=== PATIENT | female | born 1955 | race Caucasian/White ===

== ENCOUNTER 2016-07-24 06:22 | Day surgery (SDC) | payer MEDICARE, MEDICAID ==
[~2016-07-24 06:22] MED LIST: ACET-3161 PO; ASPI325T2 PO; FERR-63 PO; INSU100V28 IJ; INSU3INS6 SQ; ISOS20TA8 PO; LOSA100T11 PO; METO25TA6 PO; MULT-1146 PO; OMEP20TA80 PO; POTA20TA75 PO
[2016-07-24] MEDS ORDERED: NITROGLYCERIN 50MCG/ML 10ML VIAL (CATH LAB) IV ONE (07:18)
[2016-07-24] MEDS ORDERED: NICARDIPINE 100MCG/ML 10ML VIAL (CATH LAB) IV ONE (07:18)
[2016-07-24] MEDS ORDERED: ASPI-1035 PO (07:36)
[2016-07-24] MEDS ORDERED: LIDOCAINE HCL 1% 20ML VIAL (Pyxis) INJ ONE (07:59)
[2016-07-24] MEDS ORDERED: IOHEXOL-300 100 ML BOTTLE ONE ×2 (08:08→09:09)
[2016-07-24] MEDS ORDERED: MIDAZOLAM HCL 2 MG/2 ML VIAL ONE ×2 (08:23→09:13)
[2016-07-24] MEDS ORDERED: FENTANYL CITRATE/PF 50MCG/ML 2ML VIAL ONE (08:24)
[2016-07-24] MEDS ORDERED: HEPARIN SODIUM 1,000 UNIT/1ML VIAL IV ONE ×2 (08:27→09:26)
[2016-07-24] MEDS ORDERED: DEXTROSE 50% WATER 50ML SYRINGE IV PRN (10:00)
[2016-07-24] MEDS ORDERED: SODIUM CHLORIDE 0.45% 1,000 ML IV ONE (10:00)
[2016-07-24] MEDS ORDERED: BLOOD SUGAR DIAGNOSTIC STRIP TEST SCH (13:00)
[2016-07-24] MEDS ORDERED: INSULIN LISPRO 100 UNITS/ML SUBCUT SCH (13:00)
== END 2016-07-24 14:00 | disposition home or self-care (01) ==
LOC: CCL 06:22
PROVIDERS: ATTEND Specialist
DX: I25.10 Atherosclerotic heart disease of native coronary artery without angina pectoris (principal); I10 Essential (primary) hypertension; I21.3 ST elevation (STEMI) myocardial infarction of unspecified site; I73.9 Peripheral vascular disease, unspecified; K21.9 Gastro-esophageal reflux disease without esophagitis; E11.40 Type 2 diabetes mellitus with diabetic neuropathy, unspecified; E11.9 Type 2 diabetes mellitus without complications
CPT/HCPCS: 93458; 93970; 93971; C1769; C1887; C1893; J1644; J2250; J3010; J3490; Q9967

== ENCOUNTER 2017-04-08 13:37 | Inpatient (IN) | payer MEDICARE, MEDICAID ==
[~2017-04-08] VITALS: Ht 157.5 cm; Wt 69.9 kg
[~2017-04-08 13:37] MED LIST changes: +ASPI-1159 PO; -ASPI325T2 PO; +FURO40TA5 PO; +GABA-531 PO; -LOSA100T11 PO; +LOSA100T3 PO; +OMEP20TA2 PO; -OMEP20TA80 PO; +POTA20TA12 PO; -POTA20TA75 PO
[2017-04-08] MEDS ORDERED: SODIUM CHLORIDE 0.9% 1,000 ML IV ONE (15:18)
[2017-04-08 15:50] LABS: BASOPHILS % 0.3 % (0.0-2.0); EOSINOPHILS % 1.2 % (0.0-5.0); HEMATOCRIT. 26.9 % (36.0-48.0); HEMOGLOBIN. 9.2 g/dL (12.0-16.0); LYMPHOCYTES % 24.5 % (20.0-50.0); MEAN CORPUSCULAR HEMOGLOBIN 31.7 pg (28.0-32.0); MEAN CORPUSCULAR VOLUME 92.7 fL (81.0-99.0); MEAN PLATELET VOLUME 9.3 fl (7.4-10.4); MONOCYTES % 6.6 % (2.0-8.0); NEUTROPHILS % 67.4 % (40.0-76.0); PLATELET 201 x1000/uL (130-400); RED CELL DISTRIBUTION WIDTH 12.9 % (11.6-14.6)
[2017-04-08 15:52] LABS: CHLORIDE 101 mEq/L (98-107)
[2017-04-08 15:54] LABS: INR 1.1; PARTIAL THROMBOPLASTIN TIME 25.2 sec (23.4-31.0); PROTHROMBIN TIME 11.4 sec (9.4-11.6)
[2017-04-08 15:55] LABS: CARBON DIOXIDE 28 mEq/L (21-32)
[2017-04-08 17:24] LABS: CLARITY URINE TURBID (CLEAR); COLOR URINE ORANGE (YELLOW); KETONES URINE NEGATIVE (NEGATIVE); LEUKOCYTE ESTERASE URINE 3+ (NEGATIVE); NITRITE URINE POSITIVE (NEGATIVE); OCCULT BLOOD URINE 3+ (NEGATIVE); PROTEIN URINE 2+ (NEGATIVE); SPECIFIC GRAVITY URINE 1.019 (1.005-1.030)
[2017-04-08] MEDS ORDERED: CEFTRIAXONE 1 G PREMIX 50 ML IV ONE (18:30)
[2017-04-08] MEDS: SODIUM CHLORIDE 0.45% 1,000 ML IV SCH (23:00)
[2017-04-08] MEDS ORDERED: ACETAMINOPHEN 325MG TABLET PO PRN (23:00)
[2017-04-08] MEDS ORDERED: DEXTROSE 50% WATER 50ML SYRINGE IV PRN (23:00)
[2017-04-09] VITALS (12 sets, daily range): BP systolic 100–149; BP diastolic 54–80
[2017-04-09] MEDS: BLOOD SUGAR DIAGNOSTIC STRIP TEST SCH ×4 (07:01→21:02)
[2017-04-09 07:14] LABS: BASOPHILS % 0.2 % (0.0-2.0); EOSINOPHILS % 3.5 % (0.0-5.0); HEMATOCRIT. 23.3 % (36.0-48.0); HEMOGLOBIN. 7.9 g/dL (12.0-16.0); MEAN CORPUSCULAR HEMOGLOBIN 31.4 pg (28.0-32.0); MEAN PLATELET VOLUME 9.7 fl (7.4-10.4); MONOCYTES % 10.2 % (2.0-8.0); NEUTROPHILS % 49.1 % (40.0-76.0); PLATELET 105 x1000/uL (130-400); RED BLOOD CELL COUNT 2.53 mill/uL (4.2-5.4); RED CELL DISTRIBUTION WIDTH 12.5 % (11.6-14.6)
[2017-04-09] MEDS: INSULIN LISPRO 100 UNITS/ML SUBCUT SCH ×4 (07:50→21:40)
[2017-04-09 08:16] LABS: CHLORIDE 104 mEq/L (98-107)
[2017-04-09 08:26] LABS: CARBON DIOXIDE 25 mEq/L (21-32)
[2017-04-09] MEDS ORDERED: OMEPRAZOLE 20MG CAPSULE EXTENDED RELEASE PO NR (09:15)
[2017-04-09] MEDS ORDERED: ACETAMINOPHEN WITH CODEINE 300/30MG TABLET PO PRN (09:15)
[2017-04-09] MEDS: LOSARTAN POTASSIUM 50 MG TABLET PO SCH (11:41)
[2017-04-09] MEDS: DOCUSATE SODIUM 250MG CAPSULE PO SCH (11:41)
[2017-04-09] MEDS: SODIUM CHLORIDE 0.45% 1,000 ML IV SCH ×2 (11:43→21:14)
[2017-04-09] MEDS: ISOSORBIDE DINITRATE 20MG TABLET PO SCH ×2 (14:24→16:24)
[2017-04-09] MEDS: FERROUS SULFATE 325MG TABLET PO SCH (16:24)
[2017-04-09 20:01] LABS: BASOPHILS % 0.3 % (0.0-2.0); EOSINOPHILS % 2.4 % (0.0-5.0); HEMATOCRIT. 29.6 % (36.0-48.0); LYMPHOCYTES % 30.4 % (20.0-50.0); MEAN CORPUSCULAR VOLUME 92.1 fL (81.0-99.0); MEAN PLATELET VOLUME 9.1 fl (7.4-10.4); MONOCYTES % 9.4 % (2.0-8.0); NEUTROPHILS % 57.5 % (40.0-76.0); PLATELET 168 x1000/uL (130-400); RED BLOOD CELL COUNT 3.22 mill/uL (4.2-5.4); RED CELL DISTRIBUTION WIDTH 13.2 % (11.6-14.6)
[2017-04-09] MEDS ORDERED: CEFTRIAXONE 1,000 MG in SODIUM CHLORIDE 0.9% 50 ML IV SCH (21:00)
[2017-04-09] MEDS ORDERED: INSULIN GLARGINE UD 100 UNITS/ML SYR SUBCUT SCH (22:00)
[2017-04-10] VITALS: BP 99/47
[2017-04-10 04:00] VITALS: BP 114/58
[2017-04-10] MEDS: SODIUM CHLORIDE 0.45% 1,000 ML IV SCH (05:13)
[2017-04-10] MEDS: BLOOD SUGAR DIAGNOSTIC STRIP TEST SCH (06:58)
[2017-04-10 06:59] LABS: BASOPHILS % 0.7 % (0.0-2.0); EOSINOPHILS % 4.2 % (0.0-5.0); HEMATOCRIT. 28.3 % (36.0-48.0); HEMOGLOBIN. 9.7 g/dL (12.0-16.0); LYMPHOCYTES % 40.6 % (20.0-50.0); MEAN CORPUSCULAR HEMOGLOBIN 31.5 pg (28.0-32.0); MEAN CORPUSCULAR VOLUME 92.4 fL (81.0-99.0); MONOCYTES % 10.4 % (2.0-8.0); NEUTROPHILS % 44.1 % (40.0-76.0); RED BLOOD CELL COUNT 3.07 mill/uL (4.2-5.4)
[2017-04-10] MEDS ORDERED: OMEPRAZOLE 20MG CAPSULE EXTENDED RELEASE PO SCH (07:20)
[2017-04-10] MEDS: INSULIN LISPRO 100 UNITS/ML SUBCUT SCH (07:50)
[2017-04-10 08:00] VITALS: BP 143/73
[2017-04-10 08:28] LABS: CARBON DIOXIDE 23 mEq/L (21-32); CHLORIDE 106 mEq/L (98-107)
[2017-04-10] MEDS ORDERED: METOPROLOL TARTRATE 25MG TABLET PO SCH (09:00)
[2017-04-10] MEDS: LOSARTAN POTASSIUM 50 MG TABLET PO SCH (09:02)
[2017-04-10] MEDS: DOCUSATE SODIUM 250MG CAPSULE PO SCH (09:02)
[2017-04-10] MEDS: FERROUS SULFATE 325MG TABLET PO SCH (09:03)
[2017-04-10] MEDS: ISOSORBIDE DINITRATE 20MG TABLET PO SCH (09:04)
[2017-04-10] MEDS ORDERED: ONDANSETRON HCL 4MG/2ML VIAL IM NR (11:00)
[2017-04-10 12:00] VITALS: BP 95/50
[2017-04-10 12:23] VITALS: BP 143/73
[2017-04-10] MEDS ORDERED: CEFTRIAXONE 1 G PREMIX 50 ML IV SCH (21:00)
== END 2017-04-10 12:42 | disposition home or self-care (01) | DRG 689 ==
LOC: ER 14:26 → 6EST 18:27 → ENRESERV 20:03
PROVIDERS: ADMIT Internal Medicine Geriatric Medicine; ATTEND Internal Medicine Geriatric Medicine
DX: N30.01 Acute cystitis with hematuria (principal); N17.0 Acute kidney failure with tubular necrosis; D69.6 Thrombocytopenia, unspecified; E11.22 Type 2 diabetes mellitus with diabetic chronic kidney disease; E11.42 Type 2 diabetes mellitus with diabetic polyneuropathy; E11.51 Type 2 diabetes mellitus with diabetic peripheral angiopathy without gangrene; R71.0 Precipitous drop in hematocrit; E11.65 Type 2 diabetes mellitus with hyperglycemia; I25.10 Atherosclerotic heart disease of native coronary artery without angina pectoris; R31.0 Gross hematuria; E66.9 Obesity, unspecified; Z96.649 Presence of unspecified artificial hip joint; D50.9 Iron deficiency anemia, unspecified; I13.10 Hypertensive heart and chronic kidney disease without heart failure, with stage 1 through stage 4 chronic kidney disease, or unspecified chronic kidney disease; I25.2 Old myocardial infarction; Z99.3 Dependence on wheelchair; N18.9 Chronic kidney disease, unspecified; Z79.82 Long term (current) use of aspirin; Z79.4 Long term (current) use of insulin; Z79.899 Other long term (current) drug therapy; Z86.73 Personal history of transient ischemic attack (TIA), and cerebral infarction without residual deficits; Z87.440 Personal history of urinary (tract) infections; Z90.710 Acquired absence of both cervix and uterus; Z88.1 Allergy status to other antibiotic agents; Z89.611 Acquired absence of right leg above knee; Z95.5 Presence of coronary angioplasty implant and graft; Z68.28 Body mass index [BMI] 28.0-28.9, adult
CPT/HCPCS: 36415; 71045; 74176; 76770; 80053; 81001; 82962; 83036; 85025; 85610; 85730; 86850; 86900; 86920; 87040; 87086; 93005; 96361; 96365; 97161; 99285; J0696; J1815; J2405; J7030; P9016

== ENCOUNTER 2019-01-30 19:35 | Inpatient (IN) | payer MEDICARE, MEDICAID ==
[~2019-01-30] VITALS: Ht 162.6 cm; Wt 72.6 kg
[~2019-01-30 19:35] MED LIST changes: -ASPI-1159 PO; +ASPI-1393 PO
[2019-01-30] MEDS ORDERED: SODIUM CHLORIDE 0.9% 1,000 ML IV ONE (21:19)
[2019-01-30] MEDS ORDERED: ONDANSETRON HCL 4MG/2ML INJ IV STA (21:19)
[2019-01-30 21:41] LABS: HEMATOCRIT. 38.7 % (36.0-48.0); MEAN CORPUSCULAR HEMOGLOBIN 31.8 pg (28.0-32.0); MEAN CORPUSCULAR VOLUME 94.7 fL (81.0-99.0); MEAN PLATELET VOLUME 10.7 fl (7.4-10.4); PLATELET 160 x1000/uL (130-400); RED BLOOD CELL COUNT 4.09 mill/uL (4.2-5.4); RED CELL DISTRIBUTION WIDTH 13.5 % (11.6-14.6)
[2019-01-30 21:46] LABS: CHLORIDE 110 mEq/L (98-107)
[2019-01-30 22:08] LABS: PLATELET ESTIMATE NORMAL
[2019-01-30] MEDS ORDERED: CEFTRIAXONE 1 G PREMIX 50 ML IV ONE (23:00)
[2019-01-31] VITALS (7 sets, daily range): BP systolic 84–141; BP diastolic 49–70
[2019-01-31 00:04] LABS: CLARITY URINE TURBID (CLEAR); COLOR URINE DARK YELLOW (YELLOW); KETONES URINE NEGATIVE (NEGATIVE); LEUKOCYTE ESTERASE URINE 3+ (NEGATIVE); NITRITE URINE NEGATIVE (NEGATIVE); OCCULT BLOOD URINE 2+ (NEGATIVE); PH URINE 7.5 (4.5-8.0); PROTEIN URINE 3+ (NEGATIVE); SPECIFIC GRAVITY URINE 1.017 (1.005-1.030)
[2019-01-31] MEDS ORDERED: PIPERACILLIN/TAZOBACTAM 3.375GM/50ML PREMIX IV SCH (07:00)
[2019-01-31] MEDS ORDERED: DEXTROSE 50% WATER 50ML SYRINGE IV PRN (07:00)
[2019-01-31] MEDS ORDERED: ACETAMINOPHEN WITH CODEINE 300/30MG TABLET PO PRN (07:00)
[2019-01-31] MEDS: BLOOD SUGAR DIAGNOSTIC STRIP TEST SCH ×4 (07:42→21:17)
[2019-01-31] MEDS: OMEPRAZOLE 20MG CAPSULE EXTENDED RELEASE PO SCH (08:38)
[2019-01-31] MEDS: LOSARTAN POTASSIUM 100 MG TABLET PO SCH (08:39)
[2019-01-31] MEDS: POTASSIUM CHLORIDE 20MEQ TABLET SR PO SCH (08:39)
[2019-01-31] MEDS: ASPIRIN 81MG EC TABLET PO SCH (08:39)
[2019-01-31] MEDS: MULTIVITAMINS,THER W-MINERALS TABLET PO SCH (08:39)
[2019-01-31] MEDS: ISOSORBIDE DINITRATE 20MG TABLET PO SCH ×3 (08:40→17:00)
[2019-01-31] MEDS: METOPROLOL TARTRATE 25MG TABLET PO SCH (08:41)
[2019-01-31] MEDS: FERROUS SULFATE 325MG TABLET PO SCH ×2 (08:42→18:16)
[2019-01-31] MEDS: INSULIN LISPRO 100 UNITS/ML SUBCUT SCH ×4 (08:56→21:00)
[2019-01-31] MEDS: PIPERACILLIN/TAZOBACTAM 3.375 G in DEXT 5% WATER 100 ML IV SCH ×3 (10:26→21:34)
[2019-01-31] MEDS ORDERED: LOPERAMIDE HCL 2MG CAPSULE PO PRN (13:15)
[2019-01-31] MEDS ORDERED: SODIUM CHLORIDE 0.9% 1,000 ML IV ONE ×2 (13:15→14:00)
[2019-01-31] MEDS: LACTOBACILLUS GG CAPSULE PO SCH (18:16)
[2019-01-31] MEDS: GABAPENTIN 300MG CAPSULE PO SCH ×2 (21:00→21:29)
[2019-01-31] MEDS: SODIUM CHLORIDE 0.45% 1,000 ML IV SCH (21:29)
[2019-02-01] VITALS (10 sets, daily range): BP systolic 102–130; BP diastolic 55–69
[2019-02-01] MEDS: SODIUM CHLORIDE 0.45% 1,000 ML IV SCH ×2 (03:10→12:38)
[2019-02-01] MEDS: PIPERACILLIN/TAZOBACTAM 3.375 G in DEXT 5% WATER 100 ML IV SCH ×4 (04:41→22:48)
[2019-02-01 06:43] LABS: HEMATOCRIT. 32.1 % (36.0-48.0); HEMOGLOBIN. 10.6 g/dL (12.0-16.0); MEAN CORPUSCULAR HEMOGLOBIN 31.8 pg (28.0-32.0); MEAN CORPUSCULAR VOLUME 96.2 fL (81.0-99.0); MEAN PLATELET VOLUME 11.7 fl (7.4-10.4); RED BLOOD CELL COUNT 3.34 mill/uL (4.2-5.4); RED CELL DISTRIBUTION WIDTH 13.8 % (11.6-14.6)
[2019-02-01] MEDS: OMEPRAZOLE 20MG CAPSULE EXTENDED RELEASE PO SCH (06:50)
[2019-02-01 07:05] LABS: PHOSPHORUS 3.8 mg/dL (2.5-4.9)
[2019-02-01] MEDS: INSULIN LISPRO 100 UNITS/ML SUBCUT SCH ×4 (07:20→21:00)
[2019-02-01] MEDS: BLOOD SUGAR DIAGNOSTIC STRIP TEST SCH ×4 (07:34→21:53)
[2019-02-01] MEDS: METOPROLOL TARTRATE 25MG TABLET PO SCH (09:00)
[2019-02-01] MEDS: LOSARTAN POTASSIUM 100 MG TABLET PO SCH (09:22)
[2019-02-01] MEDS: FERROUS SULFATE 325MG TABLET PO SCH ×2 (09:23→16:20)
[2019-02-01] MEDS: LACTOBACILLUS GG CAPSULE PO SCH ×2 (09:23→16:19)
[2019-02-01] MEDS: ASPIRIN 81MG EC TABLET PO SCH (09:23)
[2019-02-01] MEDS: MULTIVITAMINS,THER W-MINERALS TABLET PO SCH (09:23)
[2019-02-01] MEDS: POTASSIUM CHLORIDE 20MEQ TABLET SR PO SCH (09:23)
[2019-02-01] MEDS ORDERED: POTASSIUM CHLORIDE 20MEQ/PACKET PO NR (10:30)
[2019-02-01 10:55] LABS: PLATELET 110 x1000/uL (130-400)
[2019-02-01] MEDS: ISOSORBIDE DINITRATE 20MG TABLET PO SCH ×2 (12:34→16:17)
[2019-02-01] MEDS: GABAPENTIN 300MG CAPSULE PO SCH (21:55)
[2019-02-02] VITALS (10 sets, daily range): BP systolic 91–128; BP diastolic 50–85
[2019-02-02] MEDS: SODIUM CHLORIDE 0.45% 1,000 ML IV SCH ×3 (00:32→21:52)
[2019-02-02] MEDS: PIPERACILLIN/TAZOBACTAM 3.375 G in DEXT 5% WATER 100 ML IV SCH ×4 (04:38→21:53)
[2019-02-02] MEDS: BLOOD SUGAR DIAGNOSTIC STRIP TEST SCH ×4 (06:33→21:00)
[2019-02-02] MEDS: FAMOTIDINE 20MG TABLET PO SCH (06:40)
[2019-02-02 06:58] LABS: BASOPHILS % 0.1 % (0.0-2.0); HEMOGLOBIN. 10.5 g/dL (12.0-16.0); LYMPHOCYTES % 7.1 % (20.0-50.0); MEAN CORPUSCULAR HEMOGLOBIN 32.1 pg (28.0-32.0); MEAN CORPUSCULAR VOLUME 95.1 fL (81.0-99.0); MONOCYTES % 5.9 % (2.0-8.0); NEUTROPHILS % 84.9 % (40.0-76.0); PLATELET 94 x1000/uL (130-400); RED BLOOD CELL COUNT 3.26 mill/uL (4.2-5.4); RED CELL DISTRIBUTION WIDTH 13.3 % (11.6-14.6)
[2019-02-02] MEDS: INSULIN LISPRO 100 UNITS/ML SUBCUT SCH ×4 (07:20→21:53)
[2019-02-02 08:11] LABS: CHLORIDE 109 mEq/L (98-107)
[2019-02-02] MEDS: FERROUS SULFATE 325MG TABLET PO SCH ×2 (09:03→18:03)
[2019-02-02] MEDS: LACTOBACILLUS GG CAPSULE PO SCH ×2 (09:05→18:03)
[2019-02-02] MEDS: ASPIRIN 81MG EC TABLET PO SCH (09:05)
[2019-02-02] MEDS: LOSARTAN POTASSIUM 100 MG TABLET PO SCH (09:05)
[2019-02-02] MEDS: MULTIVITAMINS,THER W-MINERALS TABLET PO SCH (09:05)
[2019-02-02] MEDS: POTASSIUM CHLORIDE 20MEQ TABLET SR PO SCH (09:06)
[2019-02-02] MEDS: METOPROLOL TARTRATE 25MG TABLET PO SCH (09:06)
[2019-02-02] MEDS: ISOSORBIDE DINITRATE 20MG TABLET PO SCH ×3 (09:53→18:08)
[2019-02-02] MEDS ORDERED: POTASSIUM CHLORIDE 20MEQ/PACKET PO NR (14:00)
[2019-02-02] MEDS: IPRATROPIUM/ALBUTEROL 0.5-3(2.5)MG/3ML NEB HHN SCH ×2 (15:29→20:29)
[2019-02-02 16:07] LABS: CREATINE KINASE 26 IU/L (26-192)
[2019-02-02] MEDS: GABAPENTIN 300MG CAPSULE PO SCH (21:53)
[2019-02-03] VITALS (11 sets, daily range): BP systolic 2–137; BP diastolic 32–96
[2019-02-03] MEDS: IPRATROPIUM/ALBUTEROL 0.5-3(2.5)MG/3ML NEB HHN SCH ×4 (01:50→20:38)
[2019-02-03] MEDS: PIPERACILLIN/TAZOBACTAM 3.375 G in DEXT 5% WATER 100 ML IV SCH ×4 (04:30→21:24)
[2019-02-03] MEDS: SODIUM CHLORIDE 0.45% 1,000 ML IV SCH ×3 (06:30→23:05)
[2019-02-03] MEDS: BLOOD SUGAR DIAGNOSTIC STRIP TEST SCH ×4 (06:30→21:00)
[2019-02-03] MEDS: FAMOTIDINE 20MG TABLET PO SCH ×3 (06:30→06:50)
[2019-02-03 06:58] LABS: HEMATOCRIT. 33.6 % (36.0-48.0); HEMOGLOBIN. 11.2 g/dL (12.0-16.0); MEAN CORPUSCULAR HEMOGLOBIN 31.8 pg (28.0-32.0); MEAN CORPUSCULAR VOLUME 95.6 fL (81.0-99.0); MEAN PLATELET VOLUME 11.5 fl (7.4-10.4); RED BLOOD CELL COUNT 3.51 mill/uL (4.2-5.4); RED CELL DISTRIBUTION WIDTH 13.4 % (11.6-14.6)
[2019-02-03 08:42] LABS: PLATELET ESTIMATE NORMAL
[2019-02-03 08:43] LABS: PLATELET 105 x1000/uL (130-400)
[2019-02-03] MEDS: LACTOBACILLUS GG CAPSULE PO SCH ×3 (09:00→17:04)
[2019-02-03] MEDS: FERROUS SULFATE 325MG TABLET PO SCH ×3 (10:12→17:20)
[2019-02-03] MEDS: MULTIVITAMINS,THER W-MINERALS TABLET PO SCH (10:12)
[2019-02-03] MEDS: ASPIRIN 81MG EC TABLET PO SCH (10:12)
[2019-02-03] MEDS: POTASSIUM CHLORIDE 20MEQ TABLET SR PO SCH (10:15)
[2019-02-03] MEDS: ISOSORBIDE DINITRATE 20MG TABLET PO SCH ×4 (10:15→17:04)
[2019-02-03] MEDS: LOSARTAN POTASSIUM 100 MG TABLET PO SCH (10:16)
[2019-02-03] MEDS: METOPROLOL TARTRATE 25MG TABLET PO SCH (10:16)
[2019-02-03] MEDS: INSULIN GLARGINE UD 100 UNITS/ML SYR SUBCUT SCH (10:18)
[2019-02-03] MEDS: INSULIN LISPRO 100 UNITS/ML SUBCUT SCH ×4 (10:19→21:00)
[2019-02-03] MEDS: GABAPENTIN 300MG CAPSULE PO SCH (21:13)
[2019-02-04] VITALS (12 sets, daily range): BP systolic 95–149; BP diastolic 63–92
[2019-02-04] MEDS: IPRATROPIUM/ALBUTEROL 0.5-3(2.5)MG/3ML NEB HHN SCH ×4 (02:04→21:07)
[2019-02-04] MEDS: PIPERACILLIN/TAZOBACTAM 3.375 G in DEXT 5% WATER 100 ML IV SCH ×4 (04:13→21:43)
[2019-02-04 06:15] LABS: HEMATOCRIT. 33.8 % (36.0-48.0); HEMOGLOBIN. 11.5 g/dL (12.0-16.0); MEAN CORPUSCULAR HEMOGLOBIN 31.8 pg (28.0-32.0); MEAN CORPUSCULAR VOLUME 93.2 fL (81.0-99.0); MEAN PLATELET VOLUME 10.6 fl (7.4-10.4); PLATELET 150 x1000/uL (130-400); RED BLOOD CELL COUNT 3.63 mill/uL (4.2-5.4); RED CELL DISTRIBUTION WIDTH 12.9 % (11.6-14.6)
[2019-02-04] MEDS: FAMOTIDINE 20MG TABLET PO SCH (06:22)
[2019-02-04] MEDS: BLOOD SUGAR DIAGNOSTIC STRIP TEST SCH ×4 (06:22→21:00)
[2019-02-04] MEDS: SODIUM CHLORIDE 0.45% 1,000 ML IV SCH (06:22)
[2019-02-04 06:24] LABS: CHLORIDE 100 mEq/L (98-107)
[2019-02-04] MEDS: INSULIN LISPRO 100 UNITS/ML SUBCUT SCH ×4 (07:20→21:00)
[2019-02-04] MEDS: METOPROLOL TARTRATE 25MG TABLET PO SCH (09:00)
[2019-02-04] MEDS: ASPIRIN 81MG EC TABLET PO SCH (09:00)
[2019-02-04] MEDS: LOSARTAN POTASSIUM 100 MG TABLET PO SCH (09:00)
[2019-02-04] MEDS ORDERED: POTASSIUM CHLORIDE 20MEQ TABLET SR PO SCH (09:00)
[2019-02-04] MEDS: MULTIVITAMINS,THER W-MINERALS TABLET PO SCH (09:00)
[2019-02-04] MEDS ORDERED: VANCOMYCIN 1 G PREMIX 200 ML IV SCH (09:15)
[2019-02-04] MEDS ORDERED: MAGNESIUM 2 G PREMIX 50 ML IV PRN (09:15)
[2019-02-04] MEDS ORDERED: POTASSIUM CHLORIDE 20MEQ/PACKET PO SCH (09:30)
[2019-02-04] MEDS: ONDANSETRON HCL 4MG/2ML INJ IV PRN ×2 (09:38→16:17)
[2019-02-04] MEDS ORDERED: VANCOMYCIN 1500MG in DEXTROSE 5% WATER 250ML IV NR (11:00)
[2019-02-04] MEDS ORDERED: POTASSIUM CHLORIDE INJ 40 MEQ in DEXT 5% WATER 250 ML IV NR (11:00)
[2019-02-04 11:06] LABS: PLATELET ESTIMATE NORMAL
[2019-02-04] MEDS: DEXT 5%/0.45% NACL KCL 20MEQ/L 1,000 ML IV SCH ×2 (11:06→19:46)
[2019-02-04] MEDS: ISOSORBIDE DINITRATE 20MG TABLET PO SCH ×2 (13:44→17:00)
[2019-02-04] MEDS: INSULIN GLARGINE UD 100 UNITS/ML SYR SUBCUT SCH (13:46)
[2019-02-04] MEDS: LACTOBACILLUS GG CAPSULE PO SCH (16:17)
[2019-02-04] MEDS: FERROUS SULFATE 325MG TABLET PO SCH (16:20)
[2019-02-04] MEDS: GABAPENTIN 300MG CAPSULE PO SCH (21:00)
[2019-02-04] MEDS: VANCOMYCIN 1 G PREMIX 200 ML IV SCH (23:05)
[2019-02-05] VITALS (11 sets, daily range): BP systolic 103–131; BP diastolic 52–90
[2019-02-05] MEDS: IPRATROPIUM/ALBUTEROL 0.5-3(2.5)MG/3ML NEB HHN SCH ×4 (03:07→21:07)
[2019-02-05] MEDS: DEXT 5%/0.45% NACL KCL 20MEQ/L 1,000 ML IV SCH (03:59)
[2019-02-05] MEDS: PIPERACILLIN/TAZOBACTAM 3.375 G in DEXT 5% WATER 100 ML IV SCH ×3 (03:59→16:49)
[2019-02-05] MEDS: ONDANSETRON HCL 4MG/2ML INJ IV PRN ×2 (05:31→21:43)
[2019-02-05] MEDS: BLOOD SUGAR DIAGNOSTIC STRIP TEST SCH ×4 (06:39→20:58)
[2019-02-05] MEDS: FAMOTIDINE 20MG TABLET PO SCH (06:39)
[2019-02-05 06:56] LABS: HEMATOCRIT. 29.4 % (36.0-48.0); HEMOGLOBIN. 9.8 g/dL (12.0-16.0); MEAN CORPUSCULAR HEMOGLOBIN 31.6 pg (28.0-32.0); MEAN CORPUSCULAR VOLUME 94.2 fL (81.0-99.0); MEAN PLATELET VOLUME 10.4 fl (7.4-10.4); PLATELET 150 x1000/uL (130-400); RED BLOOD CELL COUNT 3.11 mill/uL (4.2-5.4); RED CELL DISTRIBUTION WIDTH 13.2 % (11.6-14.6)
[2019-02-05 07:01] LABS: CHLORIDE 100 mEq/L (98-107)
[2019-02-05 07:08] LABS: PHOSPHORUS 1.6 mg/dL (2.5-4.9)
[2019-02-05] MEDS: FERROUS SULFATE 325MG TABLET PO SCH ×2 (07:38→17:20)
[2019-02-05] MEDS: INSULIN LISPRO 100 UNITS/ML SUBCUT SCH ×4 (07:40→20:58)
[2019-02-05] MEDS: ISOSORBIDE DINITRATE 20MG TABLET PO SCH ×4 (09:00→17:10)
[2019-02-05] MEDS: LACTOBACILLUS GG CAPSULE PO SCH ×3 (09:53→17:10)
[2019-02-05] MEDS: ASPIRIN 81MG EC TABLET PO SCH (09:53)
[2019-02-05] MEDS: LOSARTAN POTASSIUM 100 MG TABLET PO SCH (09:55)
[2019-02-05] MEDS: METOPROLOL TARTRATE 25MG TABLET PO SCH (09:55)
[2019-02-05] MEDS: MULTIVITAMINS,THER W-MINERALS TABLET PO SCH (10:02)
[2019-02-05] MEDS: INSULIN GLARGINE UD 100 UNITS/ML SYR SUBCUT SCH (10:04)
[2019-02-05 10:29] LABS: PLATELET ESTIMATE NORMAL
[2019-02-05] MEDS: DEXT 5%/0.9% NACL KCL 20MEQ/L 1,000 ML IV SCH ×2 (10:32→19:32)
[2019-02-05] MEDS: VANCOMYCIN 1 G PREMIX 200 ML IV SCH (10:33)
[2019-02-05] MEDS ORDERED: MEROPENEM 1,000 MG in SODIUM CHLORIDE 0.9% 100 ML IV SCH (11:15)
[2019-02-05] MEDS: MEROPENEM 1000MG in NORMAL SALINE 100ML IV SCH (18:41)
[2019-02-05] MEDS: GABAPENTIN 300MG CAPSULE PO SCH (21:07)
[2019-02-05] MEDS ORDERED: VANCOMYCIN 750 MG PREMIX 150 ML IV SCH (22:00)
[2019-02-06] VITALS (12 sets, daily range): BP systolic 92–152; BP diastolic 48–98
[2019-02-06] MEDS: IPRATROPIUM/ALBUTEROL 0.5-3(2.5)MG/3ML NEB HHN SCH ×3 (01:44→21:29)
[2019-02-06] MEDS: MEROPENEM 1000MG in NORMAL SALINE 100ML IV SCH ×2 (05:47→18:27)
[2019-02-06] MEDS: BLOOD SUGAR DIAGNOSTIC STRIP TEST SCH ×4 (06:16→20:51)
[2019-02-06] MEDS: INSULIN LISPRO 100 UNITS/ML SUBCUT SCH ×4 (06:23→21:38)
[2019-02-06] MEDS: FAMOTIDINE 20MG TABLET PO SCH (06:25)
[2019-02-06] MEDS: FERROUS SULFATE 325MG TABLET PO SCH ×2 (06:25→13:22)
[2019-02-06 07:41] LABS: HEMATOCRIT. 32.2 % (36.0-48.0); HEMOGLOBIN. 10.7 g/dL (12.0-16.0); MEAN CORPUSCULAR HEMOGLOBIN 31.1 pg (28.0-32.0); MEAN CORPUSCULAR VOLUME 93.9 fL (81.0-99.0); MEAN PLATELET VOLUME 9.8 fl (7.4-10.4); PLATELET 143 x1000/uL (130-400); RED BLOOD CELL COUNT 3.43 mill/uL (4.2-5.4); RED CELL DISTRIBUTION WIDTH 13.2 % (11.6-14.6)
[2019-02-06] MEDS: DEXT 5%/0.9% NACL KCL 20MEQ/L 1,000 ML IV SCH ×2 (07:51→20:52)
[2019-02-06 08:03] LABS: CHLORIDE 102 mEq/L (98-107)
[2019-02-06 08:14] LABS: PHOSPHORUS 1.9 mg/dL (2.5-4.9)
[2019-02-06 10:19] LABS: PARTIAL THROMBOPLASTIN TIME 35.5 sec (23.4-31.0); PROTHROMBIN TIME 10.7 sec (9.6-11.0)
[2019-02-06] MEDS ORDERED: LIDOCAINE HCL 1% 20ML VIAL (Pyxis) INJ ONE ×2 (10:53→14:17)
[2019-02-06] MEDS: ISOSORBIDE DINITRATE 20MG TABLET PO SCH ×3 (13:00→18:42)
[2019-02-06 13:20] LABS: PLATELET ESTIMATE NORMAL
[2019-02-06] MEDS: LACTOBACILLUS GG CAPSULE PO SCH ×2 (13:20→18:43)
[2019-02-06] MEDS: ONDANSETRON HCL 4MG/2ML INJ IV PRN (13:20)
[2019-02-06] MEDS: LOSARTAN POTASSIUM 100 MG TABLET PO SCH (13:21)
[2019-02-06] MEDS: MULTIVITAMINS,THER W-MINERALS TABLET PO SCH (13:21)
[2019-02-06] MEDS: METOPROLOL TARTRATE 25MG TABLET PO SCH (13:21)
[2019-02-06] MEDS: INSULIN GLARGINE UD 100 UNITS/ML SYR SUBCUT SCH (13:23)
[2019-02-06] MEDS: ASPIRIN 81MG EC TABLET PO SCH (13:24)
[2019-02-06] MEDS ORDERED: SODIUM BICARBONATE 4% (2.4MEQ) 5ML VIAL IV ONE (14:19)
[2019-02-06] MEDS ORDERED: POTASSIUM PHOS,M-BASIC-D-BASIC 10 MMOL in DEXT 5% WATER 246.6667 ML IV NR (15:00)
[2019-02-06] MEDS: GABAPENTIN 300MG CAPSULE PO SCH (20:52)
[2019-02-06] MEDS: VANCOMYCIN 500 MG PREMIX 100 ML IV SCH (23:27)
[2019-02-07] VITALS (12 sets, daily range): BP systolic 92–127; BP diastolic 50–77
[2019-02-07] MEDS: IPRATROPIUM/ALBUTEROL 0.5-3(2.5)MG/3ML NEB HHN SCH ×4 (02:05→21:19)
[2019-02-07] MEDS: BLOOD SUGAR DIAGNOSTIC STRIP TEST SCH ×3 (06:23→16:31)
[2019-02-07] MEDS: FAMOTIDINE 20MG TABLET PO SCH ×2 (06:37→06:42)
[2019-02-07] MEDS: MEROPENEM 1000MG in NORMAL SALINE 100ML IV SCH ×2 (06:37→16:40)
[2019-02-07 07:01] LABS: HEMATOCRIT. 26.1 % (36.0-48.0); HEMOGLOBIN. 8.6 g/dL (12.0-16.0); MEAN CORPUSCULAR HEMOGLOBIN 31.5 pg (28.0-32.0); MEAN CORPUSCULAR VOLUME 95.5 fL (81.0-99.0); MEAN PLATELET VOLUME 9.5 fl (7.4-10.4); PLATELET 155 x1000/uL (130-400); RED BLOOD CELL COUNT 2.73 mill/uL (4.2-5.4); RED CELL DISTRIBUTION WIDTH 13.3 % (11.6-14.6)
[2019-02-07] MEDS: DEXT 5%/0.9% NACL KCL 20MEQ/L 1,000 ML IV SCH ×2 (07:17→21:46)
[2019-02-07] MEDS: INSULIN LISPRO 100 UNITS/ML SUBCUT SCH ×3 (07:20→16:39)
[2019-02-07] MEDS: FERROUS SULFATE 325MG TABLET PO SCH ×2 (07:20→16:31)
[2019-02-07] MEDS: LOSARTAN POTASSIUM 100 MG TABLET PO SCH (08:32)
[2019-02-07] MEDS: LACTOBACILLUS GG CAPSULE PO SCH ×2 (08:33→16:40)
[2019-02-07] MEDS: ASPIRIN 81MG EC TABLET PO SCH (08:33)
[2019-02-07] MEDS: METOPROLOL TARTRATE 25MG TABLET PO SCH (08:33)
[2019-02-07] MEDS: MULTIVITAMINS,THER W-MINERALS TABLET PO SCH (08:33)
[2019-02-07 09:01] LABS: CHLORIDE 109 mEq/L (98-107)
[2019-02-07] MEDS: ISOSORBIDE DINITRATE 20MG TABLET PO SCH ×3 (10:20→16:31)
[2019-02-07] MEDS: INSULIN GLARGINE UD 100 UNITS/ML SYR SUBCUT SCH (10:23)
[2019-02-07 10:46] LABS: PLATELET ESTIMATE NORMAL
[2019-02-07 11:44] LABS: CHLORIDE 107 mEq/L (98-107)
[2019-02-07] MEDS: VANCOMYCIN 500 MG PREMIX 100 ML IV SCH (12:13)
[2019-02-07] MEDS: GABAPENTIN 300MG CAPSULE PO SCH (21:46)
[2019-02-08] VITALS (21 sets, daily range): BP systolic 83–167; BP diastolic 51–83
[2019-02-08] MEDS: VANCOMYCIN 500 MG PREMIX 100 ML IV SCH ×2 (00:49→12:30)
[2019-02-08] MEDS: IPRATROPIUM/ALBUTEROL 0.5-3(2.5)MG/3ML NEB HHN SCH ×3 (01:14→20:48)
[2019-02-08] MEDS: MEROPENEM 1000MG in NORMAL SALINE 100ML IV SCH ×2 (05:38→19:18)
[2019-02-08] MEDS: FAMOTIDINE 20MG TABLET PO SCH (05:38)
[2019-02-08] MEDS: INSULIN LISPRO 100 UNITS/ML SUBCUT SCH ×4 (07:00→21:00)
[2019-02-08] MEDS: BLOOD SUGAR DIAGNOSTIC STRIP TEST SCH ×4 (07:00→21:35)
[2019-02-08 07:21] LABS: BASOPHILS % 0.1 % (0.0-2.0); EOSINOPHILS % 2.3 % (0.0-5.0); HEMOGLOBIN. 10.3 g/dL (12.0-16.0); LYMPHOCYTES % 8.5 % (20.0-50.0); MEAN CORPUSCULAR HEMOGLOBIN 31.6 pg (28.0-32.0); MEAN CORPUSCULAR VOLUME 95.2 fL (81.0-99.0); MEAN PLATELET VOLUME 8.9 fl (7.4-10.4); MONOCYTES % 6.9 % (2.0-8.0); NEUTROPHILS % 82.2 % (40.0-76.0); PLATELET 168 x1000/uL (130-400); RED BLOOD CELL COUNT 3.25 mill/uL (4.2-5.4); RED CELL DISTRIBUTION WIDTH 13.2 % (11.6-14.6)
[2019-02-08 07:43] LABS: CHLORIDE 110 mEq/L (98-107)
[2019-02-08] MEDS: LACTOBACILLUS GG CAPSULE PO SCH ×2 (09:02→19:17)
[2019-02-08] MEDS: FERROUS SULFATE 325MG TABLET PO SCH ×2 (09:03→19:16)
[2019-02-08] MEDS: ASPIRIN 81MG EC TABLET PO SCH (09:03)
[2019-02-08] MEDS: LOSARTAN POTASSIUM 50 MG TABLET PO SCH (09:04)
[2019-02-08] MEDS: ISOSORBIDE DINITRATE 20MG TABLET PO SCH ×3 (09:04→17:00)
[2019-02-08] MEDS: METOPROLOL TARTRATE 25MG TABLET PO SCH (09:04)
[2019-02-08] MEDS: DEXT 5%/0.9% NACL 1,000 ML IV SCH (09:09)
[2019-02-08] MEDS: MULTIVITAMINS,THER W-MINERALS TABLET PO SCH (09:11)
[2019-02-08] MEDS: INSULIN GLARGINE UD 100 UNITS/ML SYR SUBCUT SCH (09:12)
[2019-02-08] MEDS: GABAPENTIN 300MG CAPSULE PO SCH (21:30)
[2019-02-08] MEDS: ONDANSETRON HCL 4MG/2ML INJ IV PRN (22:57)
[2019-02-09] VITALS (14 sets, daily range): BP systolic 103–158; BP diastolic 29–99
[2019-02-09] MEDS: VANCOMYCIN 500 MG PREMIX 100 ML IV SCH (00:42)
[2019-02-09] MEDS: IPRATROPIUM/ALBUTEROL 0.5-3(2.5)MG/3ML NEB HHN SCH ×4 (04:45→20:19)
[2019-02-09] MEDS: BLOOD SUGAR DIAGNOSTIC STRIP TEST SCH ×4 (06:02→20:45)
[2019-02-09] MEDS: FAMOTIDINE 20MG TABLET PO SCH (06:02)
[2019-02-09] MEDS: MEROPENEM 1000MG in NORMAL SALINE 100ML IV SCH ×2 (06:02→18:00)
[2019-02-09] MEDS: DEXT 5%/0.9% NACL 1,000 ML IV SCH ×2 (06:12→18:05)
[2019-02-09] MEDS: INSULIN LISPRO 100 UNITS/ML SUBCUT SCH ×4 (07:20→20:45)
[2019-02-09 08:06] LABS: HEMATOCRIT. 32.3 % (36.0-48.0); HEMOGLOBIN. 10.6 g/dL (12.0-16.0); MEAN CORPUSCULAR HEMOGLOBIN 31.2 pg (28.0-32.0); MEAN CORPUSCULAR VOLUME 94.8 fL (81.0-99.0); MEAN PLATELET VOLUME 8.8 fl (7.4-10.4); RED CELL DISTRIBUTION WIDTH 13.1 % (11.6-14.6)
[2019-02-09] MEDS: MULTIVITAMINS,THER W-MINERALS TABLET PO SCH (08:39)
[2019-02-09] MEDS: ASPIRIN 81MG EC TABLET PO SCH (08:39)
[2019-02-09] MEDS: FERROUS SULFATE 325MG TABLET PO SCH ×2 (08:39→16:49)
[2019-02-09] MEDS: LOSARTAN POTASSIUM 50 MG TABLET PO SCH (08:39)
[2019-02-09] MEDS: ISOSORBIDE DINITRATE 20MG TABLET PO SCH ×3 (08:39→16:56)
[2019-02-09] MEDS: LACTOBACILLUS GG CAPSULE PO SCH ×2 (08:39→16:49)
[2019-02-09] MEDS: METOPROLOL TARTRATE 25MG TABLET PO SCH (08:40)
[2019-02-09] MEDS: INSULIN GLARGINE UD 100 UNITS/ML SYR SUBCUT SCH (10:00)
[2019-02-09] MEDS ORDERED: DIATR MEGLU/DIATRIZOATE SOLN 30ML PO NR (13:15)
[2019-02-09 13:56] LABS: PLATELET ESTIMATE NORMAL
[2019-02-09 13:57] LABS: PLATELET 241 x1000/uL (130-400)
[2019-02-09] MEDS: METRONIDAZOLE 500 MG PREMIX 100 ML IV SCH ×2 (16:48→20:45)
[2019-02-09] MEDS: VANCOMYCIN IV SCH (18:00)
[2019-02-09] MEDS: DEXT 5% IV SCH (18:00)
[2019-02-09] MEDS: WATER IV SCH (18:00)
[2019-02-09] MEDS: GABAPENTIN 300MG CAPSULE PO SCH (20:45)
[2019-02-10] VITALS (11 sets, daily range): BP systolic 111–132; BP diastolic 53–99
[2019-02-10] MEDS: IPRATROPIUM/ALBUTEROL 0.5-3(2.5)MG/3ML NEB HHN SCH ×4 (02:01→19:47)
[2019-02-10] MEDS: METRONIDAZOLE 500 MG PREMIX 100 ML IV SCH ×3 (05:00→21:21)
[2019-02-10] MEDS: BLOOD SUGAR DIAGNOSTIC STRIP TEST SCH ×4 (06:01→21:18)
[2019-02-10] MEDS: FAMOTIDINE 20MG TABLET PO SCH (06:01)
[2019-02-10] MEDS: MEROPENEM 1000MG in NORMAL SALINE 100ML IV SCH (06:01)
[2019-02-10] MEDS: INSULIN LISPRO 100 UNITS/ML SUBCUT SCH ×4 (06:14→21:41)
[2019-02-10 06:37] LABS: CHLORIDE 111 mEq/L (98-107)
[2019-02-10 06:46] LABS: BASOPHILS % 0.3 % (0.0-2.0); EOSINOPHILS % 0.9 % (0.0-5.0); HEMATOCRIT. 29.7 % (36.0-48.0); HEMOGLOBIN. 9.8 g/dL (12.0-16.0); MEAN CORPUSCULAR HEMOGLOBIN 31.2 pg (28.0-32.0); MEAN CORPUSCULAR VOLUME 94.7 fL (81.0-99.0); MEAN PLATELET VOLUME 7.9 fl (7.4-10.4); MONOCYTES % 6.6 % (2.0-8.0); NEUTROPHILS % 84.2 % (40.0-76.0); PLATELET 225 x1000/uL (130-400); RED BLOOD CELL COUNT 3.14 mill/uL (4.2-5.4); RED CELL DISTRIBUTION WIDTH 13.5 % (11.6-14.6)
[2019-02-10] MEDS: FERROUS SULFATE 325MG TABLET PO SCH ×2 (07:20→17:37)
[2019-02-10 09:07] LABS: BG BASE EXCESS -1.2 mmol/L (-2.0-2.0); BG CARBOXYHEMOGLOBIN 0.3 % (0.5-1.5); BG DEOXYHEMOGLOBIN 3.7 % (0.0-5.0); BG FRACTION INSPIRED OXYGEN 28; BG HCO3 ACT 23.3 mmol/L (22.0-26.0); BG METHEMOGLOBIN 0.1 % (0.0-1.5); BG OXYGEN SATURATION 96.3 % (92.0-98.5); BG OXYHEMOGLOBIN 95.9 % (94.0-97.0); BG PCO2 37.8 mmHg (35.0-45.0); BG PH 7.407 (7.350-7.450); BG PO2 86.7 mmHg (75.0-100.0); BG SAMPLE SITE RIGHT BRACHIAL; BG TOTAL HEMOGLOBIN 10.2 g/dL (12.0-18.0); BG VENT MODE NASAL CANNULA
[2019-02-10] MEDS ORDERED: ACETAMINOPHEN 650MG/20.3ML UDC PO PRN (09:15)
[2019-02-10] MEDS: LACTOBACILLUS GG CAPSULE PO SCH ×2 (09:44→17:37)
[2019-02-10] MEDS: METOPROLOL TARTRATE 25MG TABLET PO SCH (09:44)
[2019-02-10] MEDS: MULTIVITAMINS,THER W-MINERALS TABLET PO SCH (09:44)
[2019-02-10] MEDS: LOSARTAN POTASSIUM 50 MG TABLET PO SCH (09:44)
[2019-02-10] MEDS: ISOSORBIDE DINITRATE 20MG TABLET PO SCH ×3 (09:44→17:37)
[2019-02-10] MEDS: ASPIRIN 81MG EC TABLET PO SCH (09:45)
[2019-02-10] MEDS: METOCLOPRAMIDE HCL 10MG/2ML VIAL IV SCH (10:00)
[2019-02-10] MEDS: INSULIN GLARGINE UD 100 UNITS/ML SYR SUBCUT SCH (10:00)
[2019-02-10] MEDS: DEXT 5%/0.9% NACL 1,000 ML IV SCH ×2 (10:45→21:25)
[2019-02-10] MEDS: VANCOMYCIN IV SCH (12:00)
[2019-02-10] MEDS: DEXT 5% IV SCH (12:00)
[2019-02-10] MEDS: WATER IV SCH (12:00)
[2019-02-10] MEDS: GABAPENTIN 300MG CAPSULE PO SCH (21:22)
[2019-02-11] VITALS (12 sets, daily range): BP systolic 111–156; BP diastolic 59–95
[2019-02-11] MEDS: IPRATROPIUM/ALBUTEROL 0.5-3(2.5)MG/3ML NEB HHN SCH ×4 (02:02→20:40)
[2019-02-11] MEDS: METOCLOPRAMIDE HCL 10MG/2ML VIAL IV SCH ×4 (02:20→17:43)
[2019-02-11] MEDS: MEROPENEM 1000MG in NORMAL SALINE 100ML IV SCH (05:09)
[2019-02-11] MEDS: METRONIDAZOLE 500 MG PREMIX 100 ML IV SCH ×3 (05:51→22:03)
[2019-02-11] MEDS: BLOOD SUGAR DIAGNOSTIC STRIP TEST SCH ×4 (05:51→20:09)
[2019-02-11] MEDS: FAMOTIDINE 20MG TABLET PO SCH (05:53)
[2019-02-11] MEDS: DEXT 5% IV SCH (06:34)
[2019-02-11] MEDS: VANCOMYCIN IV SCH (06:34)
[2019-02-11] MEDS: WATER IV SCH (06:34)
[2019-02-11 07:13] LABS: BASOPHILS % 0.3 % (0.0-2.0); EOSINOPHILS % 2.6 % (0.0-5.0); HEMATOCRIT. 29.4 % (36.0-48.0); HEMOGLOBIN. 9.9 g/dL (12.0-16.0); MEAN CORPUSCULAR VOLUME 94.7 fL (81.0-99.0); MEAN PLATELET VOLUME 8.1 fl (7.4-10.4); MONOCYTES % 6.4 % (2.0-8.0); NEUTROPHILS % 82.7 % (40.0-76.0); PLATELET 251 x1000/uL (130-400); RED CELL DISTRIBUTION WIDTH 13.6 % (11.6-14.6)
[2019-02-11 07:34] LABS: CHLORIDE 111 mEq/L (98-107)
[2019-02-11] MEDS: INSULIN LISPRO 100 UNITS/ML SUBCUT SCH ×4 (08:51→20:09)
[2019-02-11] MEDS: FERROUS SULFATE 325MG TABLET PO SCH ×2 (08:55→17:44)
[2019-02-11] MEDS: MULTIVITAMINS,THER W-MINERALS TABLET PO SCH (08:55)
[2019-02-11] MEDS: LOSARTAN POTASSIUM 50 MG TABLET PO SCH (08:55)
[2019-02-11] MEDS: ASPIRIN 81MG EC TABLET PO SCH (08:55)
[2019-02-11] MEDS: LACTOBACILLUS GG CAPSULE PO SCH ×2 (08:55→17:44)
[2019-02-11] MEDS: METOPROLOL TARTRATE 25MG TABLET PO SCH (08:56)
[2019-02-11] MEDS: INSULIN GLARGINE UD 100 UNITS/ML SYR SUBCUT SCH (09:22)
[2019-02-11] MEDS: ISOSORBIDE DINITRATE 20MG TABLET PO SCH ×3 (10:06→18:09)
[2019-02-11] MEDS: DEXT 5%/0.9% NACL 1,000 ML IV SCH ×2 (16:04→20:05)
[2019-02-11] MEDS: CEFTRIAXONE 1 G PREMIX 50 ML IV SCH (17:37)
[2019-02-11] MEDS: GABAPENTIN 300MG CAPSULE PO SCH (20:24)
[2019-02-12] VITALS (12 sets, daily range): BP systolic 108–143; BP diastolic 41–81
[2019-02-12] MEDS: IPRATROPIUM/ALBUTEROL 0.5-3(2.5)MG/3ML NEB HHN SCH ×5 (02:11→20:22)
[2019-02-12] MEDS: METOCLOPRAMIDE HCL 10MG/2ML VIAL IV SCH ×3 (02:36→17:20)
[2019-02-12] MEDS: METRONIDAZOLE 500 MG PREMIX 100 ML IV SCH ×3 (05:56→21:07)
[2019-02-12] MEDS: INSULIN LISPRO 100 UNITS/ML SUBCUT SCH ×4 (06:27→21:08)
[2019-02-12] MEDS: BLOOD SUGAR DIAGNOSTIC STRIP TEST SCH ×4 (06:27→20:36)
[2019-02-12] MEDS: FERROUS SULFATE 325MG TABLET PO SCH ×2 (06:46→17:22)
[2019-02-12] MEDS: FAMOTIDINE 20MG TABLET PO SCH (06:46)
[2019-02-12 07:32] LABS: BASOPHILS % 0.5 % (0.0-2.0); EOSINOPHILS % 2.5 % (0.0-5.0); HEMATOCRIT. 27.9 % (36.0-48.0); HEMOGLOBIN. 9.4 g/dL (12.0-16.0); LYMPHOCYTES % 11.9 % (20.0-50.0); MEAN CORPUSCULAR HEMOGLOBIN 31.9 pg (28.0-32.0); MEAN CORPUSCULAR VOLUME 94.4 fL (81.0-99.0); MEAN PLATELET VOLUME 8.5 fl (7.4-10.4); MONOCYTES % 7.4 % (2.0-8.0); NEUTROPHILS % 77.7 % (40.0-76.0); PLATELET 198 x1000/uL (130-400); RED BLOOD CELL COUNT 2.96 mill/uL (4.2-5.4); RED CELL DISTRIBUTION WIDTH 13.4 % (11.6-14.6)
[2019-02-12 07:48] LABS: CHLORIDE 111 mEq/L (98-107)
[2019-02-12] MEDS: LOSARTAN POTASSIUM 50 MG TABLET PO SCH (09:28)
[2019-02-12] MEDS: MULTIVITAMINS,THER W-MINERALS TABLET PO SCH (09:28)
[2019-02-12] MEDS: ISOSORBIDE DINITRATE 20MG TABLET PO SCH ×3 (09:28→17:21)
[2019-02-12] MEDS: ASPIRIN 81MG EC TABLET PO SCH (09:28)
[2019-02-12] MEDS: METOPROLOL TARTRATE 25MG TABLET PO SCH (09:29)
[2019-02-12] MEDS: LACTOBACILLUS GG CAPSULE PO SCH ×2 (09:29→17:20)
[2019-02-12] MEDS: INSULIN GLARGINE UD 100 UNITS/ML SYR SUBCUT SCH (10:00)
[2019-02-12] MEDS: DEXT 5%/0.9% NACL 1,000 ML IV SCH (12:57)
[2019-02-12] MEDS: CEFTRIAXONE 1 G PREMIX 50 ML IV SCH (17:14)
[2019-02-12] MEDS: GABAPENTIN 300MG CAPSULE PO SCH (20:36)
[2019-02-13] VITALS (12 sets, daily range): BP systolic 11–150; BP diastolic 65–90
[2019-02-13] MEDS: IPRATROPIUM/ALBUTEROL 0.5-3(2.5)MG/3ML NEB HHN SCH ×5 (01:42→21:30)
[2019-02-13] MEDS: METOCLOPRAMIDE HCL 10MG/2ML VIAL IV SCH ×3 (02:41→17:34)
[2019-02-13] MEDS: METRONIDAZOLE 500 MG PREMIX 100 ML IV SCH ×3 (05:53→20:43)
[2019-02-13] MEDS: DEXT 5%/0.9% NACL 1,000 ML IV SCH (05:54)
[2019-02-13] MEDS: BLOOD SUGAR DIAGNOSTIC STRIP TEST SCH ×4 (06:28→20:38)
[2019-02-13] MEDS: FAMOTIDINE 20MG TABLET PO SCH (06:28)
[2019-02-13] MEDS: INSULIN LISPRO 100 UNITS/ML SUBCUT SCH ×4 (07:20→20:38)
[2019-02-13] MEDS: FERROUS SULFATE 325MG TABLET PO SCH ×2 (09:15→17:33)
[2019-02-13] MEDS: MULTIVITAMINS,THER W-MINERALS TABLET PO SCH (09:15)
[2019-02-13] MEDS: LOSARTAN POTASSIUM 50 MG TABLET PO SCH (09:15)
[2019-02-13] MEDS: ASPIRIN 81MG EC TABLET PO SCH (09:15)
[2019-02-13] MEDS: ISOSORBIDE DINITRATE 20MG TABLET PO SCH ×3 (09:15→17:33)
[2019-02-13] MEDS: LACTOBACILLUS GG CAPSULE PO SCH ×2 (09:15→17:33)
[2019-02-13] MEDS: METOPROLOL TARTRATE 25MG TABLET PO SCH (09:16)
[2019-02-13] MEDS: INSULIN GLARGINE UD 100 UNITS/ML SYR SUBCUT SCH (10:32)
[2019-02-13] MEDS ORDERED: FUROSEMIDE 40MG/4ML VIAL IVP NR (14:30)
[2019-02-13] MEDS: CEFTRIAXONE 1 G PREMIX 50 ML IV SCH (15:07)
[2019-02-13] MEDS: GABAPENTIN 300MG CAPSULE PO SCH (20:43)
[2019-02-14] VITALS (14 sets, daily range): BP systolic 111–149; BP diastolic 57–95
[2019-02-14] MEDS: IPRATROPIUM/ALBUTEROL 0.5-3(2.5)MG/3ML NEB HHN SCH ×4 (01:38→21:20)
[2019-02-14] MEDS: METOCLOPRAMIDE HCL 10MG/2ML VIAL IV SCH ×3 (02:43→17:32)
[2019-02-14] MEDS: METRONIDAZOLE 500 MG PREMIX 100 ML IV SCH ×3 (05:20→21:04)
[2019-02-14] MEDS: BLOOD SUGAR DIAGNOSTIC STRIP TEST SCH ×4 (06:01→20:18)
[2019-02-14] MEDS: INSULIN LISPRO 100 UNITS/ML SUBCUT SCH ×4 (06:01→20:22)
[2019-02-14] MEDS: FAMOTIDINE 20MG TABLET PO SCH (06:05)
[2019-02-14 07:22] LABS: BASOPHILS % 0.5 % (0.0-2.0); HEMATOCRIT. 28.2 % (36.0-48.0); HEMOGLOBIN. 9.5 g/dL (12.0-16.0); LYMPHOCYTES % 12.3 % (20.0-50.0); MEAN CORPUSCULAR HEMOGLOBIN 31.3 pg (28.0-32.0); MEAN CORPUSCULAR VOLUME 93.1 fL (81.0-99.0); MEAN PLATELET VOLUME 8.8 fl (7.4-10.4); MONOCYTES % 6.8 % (2.0-8.0); NEUTROPHILS % 77.4 % (40.0-76.0); PLATELET 171 x1000/uL (130-400); RED BLOOD CELL COUNT 3.03 mill/uL (4.2-5.4); RED CELL DISTRIBUTION WIDTH 13.5 % (11.6-14.6)
[2019-02-14 08:22] LABS: CHLORIDE 113 mEq/L (98-107)
[2019-02-14 08:33] LABS: PHOSPHORUS 1.4 mg/dL (2.5-4.9)
[2019-02-14] MEDS ORDERED: MAGNESIUM 2 G PREMIX 50 ML IV NR (10:00)
[2019-02-14] MEDS ORDERED: POTASSIUM PHOS,M-BASIC-D-BASIC 30 MMOL in DEXT 5% WATER 500 ML IV NR (10:00)
[2019-02-14] MEDS: INSULIN GLARGINE UD 100 UNITS/ML SYR SUBCUT SCH (10:10)
[2019-02-14] MEDS: METOPROLOL TARTRATE 25MG TABLET PO SCH (10:11)
[2019-02-14] MEDS: LACTOBACILLUS GG CAPSULE PO SCH ×2 (10:12→17:33)
[2019-02-14] MEDS: LOSARTAN POTASSIUM 50 MG TABLET PO SCH (10:12)
[2019-02-14] MEDS: ISOSORBIDE DINITRATE 20MG TABLET PO SCH ×3 (10:12→17:32)
[2019-02-14] MEDS: MULTIVITAMINS,THER W-MINERALS TABLET PO SCH (10:12)
[2019-02-14] MEDS: ASPIRIN 81MG EC TABLET PO SCH (10:20)
[2019-02-14] MEDS: FERROUS SULFATE 325MG TABLET PO SCH ×2 (10:21→17:32)
[2019-02-14] MEDS: FUROSEMIDE 20MG/2ML VIAL IVP SCH (10:21)
[2019-02-14] MEDS: CEFTRIAXONE 1 G PREMIX 50 ML IV SCH (15:22)
[2019-02-14] MEDS: GABAPENTIN 300MG CAPSULE PO SCH (20:21)
[2019-02-15] VITALS (12 sets, daily range): BP systolic 84–140; BP diastolic 57–85
[2019-02-15] MEDS: METOCLOPRAMIDE HCL 10MG/2ML VIAL IV SCH ×3 (01:00→17:43)
[2019-02-15] MEDS: IPRATROPIUM/ALBUTEROL 0.5-3(2.5)MG/3ML NEB HHN SCH ×4 (02:10→21:53)
[2019-02-15] MEDS: METRONIDAZOLE 500 MG PREMIX 100 ML IV SCH ×3 (05:13→21:02)
[2019-02-15] MEDS: FAMOTIDINE 20MG TABLET PO SCH (05:58)
[2019-02-15] MEDS: BLOOD SUGAR DIAGNOSTIC STRIP TEST SCH ×4 (05:58→20:09)
[2019-02-15] MEDS: INSULIN LISPRO 100 UNITS/ML SUBCUT SCH ×4 (06:10→20:15)
[2019-02-15 07:50] LABS: BASOPHILS % 0.4 % (0.0-2.0); EOSINOPHILS % 2.1 % (0.0-5.0); HEMATOCRIT. 28.1 % (36.0-48.0); HEMOGLOBIN. 9.4 g/dL (12.0-16.0); LYMPHOCYTES % 9.9 % (20.0-50.0); MEAN CORPUSCULAR HEMOGLOBIN 31.8 pg (28.0-32.0); MEAN CORPUSCULAR VOLUME 94.7 fL (81.0-99.0); MONOCYTES % 5.1 % (2.0-8.0); NEUTROPHILS % 82.5 % (40.0-76.0); RED BLOOD CELL COUNT 2.97 mill/uL (4.2-5.4); RED CELL DISTRIBUTION WIDTH 13.6 % (11.6-14.6)
[2019-02-15 08:14] LABS: CHLORIDE 109 mEq/L (98-107)
[2019-02-15 08:28] LABS: PHOSPHORUS 2.3 mg/dL (2.5-4.9)
[2019-02-15] MEDS ORDERED: FUROSEMIDE 20MG/2ML VIAL IVP SCH (09:00)
[2019-02-15] MEDS ORDERED: MIDODRINE HCL 5MG TABLET PO SCH (09:00)
[2019-02-15] MEDS: FUROSEMIDE 20MG/2ML VIAL IVP SCH (09:42)
[2019-02-15] MEDS: POTASSIUM CHLORIDE 20MEQ TABLET SR PO SCH (09:42)
[2019-02-15] MEDS: LACTOBACILLUS GG CAPSULE PO SCH ×2 (09:42→17:41)
[2019-02-15] MEDS: FERROUS SULFATE 325MG TABLET PO SCH ×2 (09:42→17:41)
[2019-02-15] MEDS: MULTIVITAMINS,THER W-MINERALS TABLET PO SCH (09:42)
[2019-02-15] MEDS: ASPIRIN 81MG EC TABLET PO SCH (09:42)
[2019-02-15] MEDS: ISOSORBIDE DINITRATE 20MG TABLET PO SCH ×3 (09:43→17:42)
[2019-02-15] MEDS: METOPROLOL TARTRATE 25MG TABLET PO SCH (09:43)
[2019-02-15] MEDS: LOSARTAN POTASSIUM 50 MG TABLET PO SCH (09:43)
[2019-02-15] MEDS: INSULIN GLARGINE UD 100 UNITS/ML SYR SUBCUT SCH (10:06)
[2019-02-15] MEDS ORDERED: SODIUM PHOS,M-BASIC-D-BASIC 15 MM in DEXT 5% WATER 245 ML IV NR (11:00)
[2019-02-15 11:16] LABS: PLATELET ESTIMATE NORMAL
[2019-02-15] MEDS: CEFTRIAXONE 1 G PREMIX 50 ML IV SCH (17:59)
[2019-02-15] MEDS: GABAPENTIN 300MG CAPSULE PO SCH (20:08)
[2019-02-16] VITALS (12 sets, daily range): BP systolic 102–152; BP diastolic 54–95
[2019-02-16] MEDS: METOCLOPRAMIDE HCL 10MG/2ML VIAL IV SCH ×3 (01:35→19:36)
[2019-02-16] MEDS: IPRATROPIUM/ALBUTEROL 0.5-3(2.5)MG/3ML NEB HHN SCH ×4 (03:20→20:51)
[2019-02-16] MEDS: METRONIDAZOLE 500 MG PREMIX 100 ML IV SCH ×3 (05:00→21:20)
[2019-02-16] MEDS: INSULIN LISPRO 100 UNITS/ML SUBCUT SCH ×3 (05:53→20:35)
[2019-02-16] MEDS: BLOOD SUGAR DIAGNOSTIC STRIP TEST SCH ×4 (05:53→20:36)
[2019-02-16] MEDS: FAMOTIDINE 20MG TABLET PO SCH (05:53)
[2019-02-16 07:59] LABS: BASOPHILS % 0.4 % (0.0-2.0); EOSINOPHILS % 2.9 % (0.0-5.0); HEMATOCRIT. 29.3 % (36.0-48.0); HEMOGLOBIN. 9.7 g/dL (12.0-16.0); MEAN CORPUSCULAR HEMOGLOBIN 31.6 pg (28.0-32.0); MEAN CORPUSCULAR VOLUME 95.3 fL (81.0-99.0); MEAN PLATELET VOLUME 9.1 fl (7.4-10.4); MONOCYTES % 6.7 % (2.0-8.0); PLATELET 166 x1000/uL (130-400); RED BLOOD CELL COUNT 3.08 mill/uL (4.2-5.4)
[2019-02-16 08:24] LABS: CHLORIDE 110 mEq/L (98-107)
[2019-02-16 08:30] LABS: PHOSPHORUS 2.3 mg/dL (2.5-4.9)
[2019-02-16] MEDS: LOSARTAN POTASSIUM 50 MG TABLET PO SCH (09:00)
[2019-02-16] MEDS: ISOSORBIDE DINITRATE 20MG TABLET PO SCH ×3 (09:00→16:42)
[2019-02-16] MEDS: POTASSIUM CHLORIDE 20MEQ TABLET SR PO SCH (09:08)
[2019-02-16] MEDS: LACTOBACILLUS GG CAPSULE PO SCH ×2 (09:08→16:41)
[2019-02-16] MEDS: MULTIVITAMINS,THER W-MINERALS TABLET PO SCH (09:09)
[2019-02-16] MEDS: METOPROLOL TARTRATE 25MG TABLET PO SCH (09:09)
[2019-02-16] MEDS: ASPIRIN 81MG EC TABLET PO SCH (09:09)
[2019-02-16] MEDS: FUROSEMIDE 20MG/2ML VIAL IVP SCH (09:10)
[2019-02-16] MEDS: INSULIN GLARGINE UD 100 UNITS/ML SYR SUBCUT SCH (11:00)
[2019-02-16] MEDS ORDERED: SODIUM PHOS,M-BASIC-D-BASIC 20 MM in DEXT 5% WATER 243.3333 ML IV SCH (12:00)
[2019-02-16] MEDS: CEFTRIAXONE 1 G PREMIX 50 ML IV SCH (15:28)
[2019-02-16] MEDS: FERROUS SULFATE 325MG TABLET PO SCH ×2 (17:20→17:46)
[2019-02-16] MEDS: GABAPENTIN 300MG CAPSULE PO SCH (20:40)
[2019-02-17] VITALS (15 sets, daily range): BP systolic 106–140; BP diastolic 61–85
[2019-02-17] MEDS: METOCLOPRAMIDE HCL 10MG/2ML VIAL IV SCH ×3 (01:44→18:00)
[2019-02-17] MEDS: IPRATROPIUM/ALBUTEROL 0.5-3(2.5)MG/3ML NEB HHN SCH ×4 (01:51→20:54)
[2019-02-17] MEDS: METRONIDAZOLE 500 MG PREMIX 100 ML IV SCH ×3 (05:03→21:31)
[2019-02-17] MEDS: FAMOTIDINE 20MG TABLET PO SCH (05:53)
[2019-02-17] MEDS: BLOOD SUGAR DIAGNOSTIC STRIP TEST SCH ×4 (05:53→21:00)
[2019-02-17] MEDS: INSULIN LISPRO 100 UNITS/ML SUBCUT SCH ×4 (05:53→21:00)
[2019-02-17 07:51] LABS: BASOPHILS % 0.6 % (0.0-2.0); HEMATOCRIT. 26.1 % (36.0-48.0); HEMOGLOBIN. 8.9 g/dL (12.0-16.0); LYMPHOCYTES % 19.4 % (20.0-50.0); MEAN CORPUSCULAR HEMOGLOBIN 31.8 pg (28.0-32.0); MEAN CORPUSCULAR VOLUME 93.5 fL (81.0-99.0); MEAN PLATELET VOLUME 9.6 fl (7.4-10.4); MONOCYTES % 7.1 % (2.0-8.0); NEUTROPHILS % 69.9 % (40.0-76.0); PLATELET 147 x1000/uL (130-400)
[2019-02-17] MEDS ORDERED: MULTIVITAMINS,THER W-MINERALS TABLET PO SCH (09:00)
[2019-02-17] MEDS ORDERED: ASPIRIN 81MG TABLET PO SCH (09:00)
[2019-02-17] MEDS: LOSARTAN POTASSIUM 50 MG TABLET PO SCH (09:00)
[2019-02-17] MEDS: FUROSEMIDE 20MG/2ML VIAL IVP SCH (10:08)
[2019-02-17] MEDS: LACTOBACILLUS GG CAPSULE PO SCH ×2 (10:08→18:00)
[2019-02-17] MEDS: MULTIVITAMINS,THER W-MINERALS TABLET PO SCH (10:08)
[2019-02-17] MEDS: METOPROLOL TARTRATE 25MG TABLET PO SCH (10:09)
[2019-02-17] MEDS: ISOSORBIDE DINITRATE 20MG TABLET PO SCH ×3 (10:09→18:00)
[2019-02-17] MEDS: INSULIN GLARGINE UD 100 UNITS/ML SYR SUBCUT SCH (10:18)
[2019-02-17 12:20] LABS: TOTAL IRON BINDING CAPACITY 166 ug/dL (250-450)
[2019-02-17] MEDS: FERROUS SULFATE 300MG/5ML UDC PO SCH ×2 (12:20→18:00)
[2019-02-17] MEDS ORDERED: IOHEXOL-300 50 ML BOTTLE IV ONE (13:32)
[2019-02-17] MEDS ORDERED: SODIUM BICARBONATE 4% (2.4MEQ) 5ML VIAL IV ONE (14:02)
[2019-02-17] MEDS ORDERED: LIDOCAINE HCL 1% 20ML VIAL (Pyxis) INJ ONE (14:02)
[2019-02-17] MEDS: CEFTRIAXONE 1 G PREMIX 50 ML IV SCH (15:06)
[2019-02-17] MEDS: GABAPENTIN 300MG CAPSULE PO SCH (21:31)
== END 2019-02-17 23:45 | DRG 871 ==
LOC: ER 19:35 → 6EST 23:11 → ENRESERV 23:26 → 3WST 01-31 16:17
PROVIDERS: ADMIT Internal Medicine Geriatric Medicine; ATTEND Internal Medicine Geriatric Medicine
PROC: 0F9430Z Drainage of Gallbladder with Drainage Device, Percutaneous Approach (ICD-10-PCS; principal; 2019-02-06)
PROC: 02HV33Z Insertion of Infusion Device into Superior Vena Cava, Percutaneous Approach (ICD-10-PCS; 2019-02-06)
PROC: B5181ZA Fluoroscopy of Superior Vena Cava using Low Osmolar Contrast, Guidance (ICD-10-PCS; 2019-02-06)
PROC: B548ZZA Ultrasonography of Superior Vena Cava, Guidance (ICD-10-PCS; 2019-02-06)
PROC: BF121ZZ Fluoroscopy of Gallbladder using Low Osmolar Contrast (ICD-10-PCS; 2019-02-17)
PROC: 0F24X0Z Change Drainage Device in Gallbladder, External Approach (ICD-10-PCS; 2019-02-17)
DX: A41.9 Sepsis, unspecified organism (principal); J69.0 Pneumonitis due to inhalation of food and vomit; N39.0 Urinary tract infection, site not specified; G93.40 Encephalopathy, unspecified; G81.94 Hemiplegia, unspecified affecting left nondominant side; E87.1 Hypo-osmolality and hyponatremia; J98.11 Atelectasis; N17.9 Acute kidney failure, unspecified; E44.1 Mild protein-calorie malnutrition; K80.00 Calculus of gallbladder with acute cholecystitis without obstruction; I95.9 Hypotension, unspecified; E86.0 Dehydration; E10.51 Type 1 diabetes mellitus with diabetic peripheral angiopathy without gangrene; E10.65 Type 1 diabetes mellitus with hyperglycemia; E87.6 Hypokalemia; G40.909 Epilepsy, unspecified, not intractable, without status epilepticus; I25.10 Atherosclerotic heart disease of native coronary artery without angina pectoris; R74.0 Nonspecific elevation of levels of transaminase and lactic acid dehydrogenase [LDH]; D69.6 Thrombocytopenia, unspecified; E10.42 Type 1 diabetes mellitus with diabetic polyneuropathy; I35.8 Other nonrheumatic aortic valve disorders; Y83.8 Other surgical procedures as the cause of abnormal reaction of the patient, or of later complication, without mention of misadventure at the time of the procedure; Y92.230 Patient room in hospital as the place of occurrence of the external cause; T85.898A Other specified complication of other internal prosthetic devices, implants and grafts, initial encounter; I49.1 Atrial premature depolarization; I50.9 Heart failure, unspecified; Z96.649 Presence of unspecified artificial hip joint; K59.09 Other constipation; R13.10 Dysphagia, unspecified; R62.7 Adult failure to thrive; J44.9 Chronic obstructive pulmonary disease, unspecified; E83.42 Hypomagnesemia; E83.39 Other disorders of phosphorus metabolism; I11.0 Hypertensive heart disease with heart failure; E66.9 Obesity, unspecified; G89.29 Other chronic pain; K52.9 Noninfective gastroenteritis and colitis, unspecified; Z82.3 Family history of stroke; Z82.49 Family history of ischemic heart disease and other diseases of the circulatory system; Z89.611 Acquired absence of right leg above knee; Z86.73 Personal history of transient ischemic attack (TIA), and cerebral infarction without residual deficits; Z79.4 Long term (current) use of insulin; I25.2 Old myocardial infarction; Z90.710 Acquired absence of both cervix and uterus; Z95.5 Presence of coronary angioplasty implant and graft; Z99.3 Dependence on wheelchair; Z68.27 Body mass index [BMI] 27.0-27.9, adult; Z88.1 Allergy status to other antibiotic agents; Z79.899 Other long term (current) drug therapy; Z79.82 Long term (current) use of aspirin
CPT/HCPCS: 36415; 36573; 36600; 47531; 51702; 71045; 71250; 74018; 74176; 76700; 76770; 77012; 78227; 80048; 80061; 80202; 81003; 82375; 82533; 82550; 82570; 82805; 82962; 83540; 83550; 83605; 83735; 83880; 83930; 84100; 84145; 84156; 84443; 84484; 85651; 87015; 87045; 87070; 87427; 87449; 87493; 89055; 92610; 93005; 93306; 93970; 94640; 96361; 96374; 96375; 97110; 97162; 97167; 99285; A6261; A9537; C1725; C1729; C1769; J0696; J1815; J1940; J2185; J2405; J2543; J2765; J3370; J3475; J3480; J3490; J7030; J7040; J7042; J7060; J7620; Q9967; A4315

== ENCOUNTER 2019-04-05 14:10 | Emergency (ER) | payer MEDICARE, MEDICAID ==
[~2019-04-05] VITALS: Ht 160 cm; Wt 90.0 kg
[~2019-04-05 14:10] MED LIST changes: -ASPI-1393 PO; -ISOS20TA8 PO; -LOSA100T3 PO; -METO25TA6 PO; -POTA20TA12 PO
[2019-04-05 23:49] LABS: CHLORIDE 108 mEq/L (98-107); EOSINOPHILS % 3.5 % (0.0-5.0); HEMATOCRIT. 31.9 % (36.0-48.0); HEMOGLOBIN. 10.9 g/dL (12.0-16.0); LYMPHOCYTES % 17.6 % (20.0-50.0); MEAN CORPUSCULAR HEMOGLOBIN 31.9 pg (28.0-32.0); MEAN CORPUSCULAR VOLUME 93.2 fL (81.0-99.0); MEAN PLATELET VOLUME 9.4 fl (7.4-10.4); NEUTROPHILS % 70.9 % (40.0-76.0); PLATELET 218 x1000/uL (130-400); RED BLOOD CELL COUNT 3.42 mill/uL (4.2-5.4); RED CELL DISTRIBUTION WIDTH 13.7 % (11.6-14.6)
[2019-04-06 00:15] VITALS: BP 152/80
== END 2019-04-06 01:19 | disposition home or self-care (01) ==
LOC: ER 14:10
DX: T85.9XXA Unspecified complication of internal prosthetic device, implant and graft, initial encounter (principal); E11.9 Type 2 diabetes mellitus without complications; I10 Essential (primary) hypertension; Z48.00 Encounter for change or removal of nonsurgical wound dressing; Z90.710 Acquired absence of both cervix and uterus
CPT/HCPCS: 36415; 71045; 80053; 83880; 84484; 85025; 93005; 99284

== ENCOUNTER 2020-03-03 13:52 | Inpatient (IN) | payer MEDICARE, MEDICAID ==
[~2020-03-03] VITALS: Ht 160 cm; Wt 58.5 kg
[2020-03-03 18:19] LABS: HEMATOCRIT. 33.8 % (36.0-48.0); HEMOGLOBIN. 11.5 g/dL (12.0-16.0); MEAN PLATELET VOLUME 9.6 fl (7.4-10.4); PLATELET 202 x1000/uL (130-400); RED BLOOD CELL COUNT 3.59 mill/uL (4.2-5.4)
[2020-03-03 18:21] LABS: CHLORIDE 114 mEq/L (98-107)
[2020-03-03] MEDS ORDERED: SODIUM CHLORIDE 0.9% 1,000 ML IV ONE (19:00)
[2020-03-03 19:13] LABS: PLATELET ESTIMATE NORMAL
[2020-03-03] MEDS ORDERED: ASPIRIN 325MG EC TABLET PO ONE (19:45)
[2020-03-03] MEDS ORDERED: ENOXAPARIN 40MG/0.4ML SYR SUBCUT SCH (21:30)
[2020-03-03] MEDS ORDERED: IPRATROPIUM/ALBUTEROL 0.5-3(2.5)MG/3ML NEB HHN PRN (21:30)
[2020-03-03] MEDS ORDERED: DEXTROSE 50% WATER 50ML SYRINGE IV PRN ×2 (21:30)
[2020-03-03] MEDS ORDERED: ACETAMINOPHEN 325MG TABLET PO PRN ×2 (21:30)
[2020-03-03] MEDS ORDERED: ONDANSETRON HCL 4MG/2ML INJ IV PRN (21:30)
[2020-03-03] MEDS ORDERED: CLONIDINE 0.1MG TABLET PO PRN (21:30)
[2020-03-03] MEDS ORDERED: GUAIFENESIN 200MG/10ML SUGAR FREE UDC PO PRN (21:30)
[2020-03-03] MEDS ORDERED: IPRATROPIUM/ALBUTEROL 0.5-3(2.5)MG/3ML NEB HHN SCH (21:30)
[2020-03-03] MEDS ORDERED: PIPERACILLIN/TAZ 3.375G PREMIX 50 ML IV NR (21:30)
[2020-03-03] MEDS ORDERED: MAGNESIUM/ALUMINUM HYDROXIDE/SIMETHICONE 30ML UDC PO PRN (21:30)
[2020-03-03] MEDS ORDERED: VANCOMYCIN 1 G PREMIX 200 ML IV NR (22:00)
[2020-03-03] MEDS: INSULIN LISPRO 100 UNITS/ML SUBCUT SCH (22:00)
[2020-03-03] MEDS ORDERED: SODIUM CHL 0.45% + KCL 20MEQ/L 1,000 ML IV SCH (22:00)
[2020-03-03] MEDS: BLOOD SUGAR DIAGNOSTIC STRIP TEST SCH (22:29)
[2020-03-03] MEDS: ENOXAPARIN 30MG/0.3ML SYR SUBCUT SCH (22:43)
[2020-03-03] MEDS: FAMOTIDINE 20MG/2ML VIAL IV SCH (22:43)
[2020-03-03] MEDS: SODIUM CHLORIDE 0.45% 1000ML IV SCH (22:44)
[2020-03-03 22:59] LABS: CREATINE KINASE MB FRACTION 57.5 ng/mL (0.5-3.6)
[2020-03-04 04:51] LABS: HEMATOCRIT. 32.6 % (36.0-48.0); HEMOGLOBIN. 10.8 g/dL (12.0-16.0); MEAN PLATELET VOLUME 8.8 fl (7.4-10.4); PLATELET 194 x1000/uL (130-400); RED BLOOD CELL COUNT 3.47 mill/uL (4.2-5.4)
[2020-03-04 04:52] LABS: CHLORIDE 116 mEq/L (98-107)
[2020-03-04 05:01] LABS: LDL CHOLESTEROL 78 mg/dL (5-100)
[2020-03-04 05:02] LABS: HDL CHOLESTEROL 39 mg/dL (40-59)
[2020-03-04 05:06] LABS: CREATINE KINASE MB FRACTION 58.4 ng/mL (0.5-3.6)
[2020-03-04] MEDS: PIPERACILLIN/TAZOBACTAM 3.375 G in DEXT 5% WATER 100 ML IV SCH ×2 (06:00→14:00)
[2020-03-04] MEDS: BLOOD SUGAR DIAGNOSTIC STRIP TEST SCH ×4 (06:30→22:29)
[2020-03-04] MEDS: INSULIN LISPRO 100 UNITS/ML SUBCUT SCH ×4 (07:00→22:31)
[2020-03-04] MEDS: SODIUM CHLORIDE 0.45% 1000ML IV SCH ×2 (08:15→18:15)
[2020-03-04] MEDS: DOCUSATE SODIUM 100MG CAPSULE PO SCH ×2 (09:00→17:00)
[2020-03-04] MEDS ORDERED: SODIUM CHLORIDE 0.9% 250 ML IV ONE ×2 (09:30)
[2020-03-04] MEDS ORDERED: SORBITOL 70% SOLN 30ML GT NR (09:45)
[2020-03-04] MEDS: CLOPIDOGREL 75MG TABLET PO SCH (10:00)
[2020-03-04] MEDS: MULTIVITAMINS,THER W-MINERALS TABLET PO SCH (10:15)
[2020-03-04] MEDS: ERGOCALCIFEROL 50000UNITS CAPSULE PO SCH (11:00)
[2020-03-04] MEDS ORDERED: SODIUM BICARBONATE 8.4% 1 MEQ/ML 50ML SYR IV NR (13:15)
[2020-03-04 13:46] LABS: BG BASE EXCESS -13.4 mmol/L (-2.0-2.0); BG CARBOXYHEMOGLOBIN 0.3 % (0.5-1.5); BG DEOXYHEMOGLOBIN 6.5 % (0.0-5.0); BG FRACTION INSPIRED OXYGEN 28; BG HCO3 ACT 11.7 mmol/L (22.0-26.0); BG METHEMOGLOBIN 0.1 % (0.0-1.5); BG OXYGEN SATURATION 93.5 % (92.0-98.5); BG OXYHEMOGLOBIN 93.1 % (94.0-97.0); BG PCO2 24.9 mmHg (35.0-45.0); BG PH 7.288 (7.350-7.450); BG PO2 73.6 mmHg (75.0-100.0); BG SAMPLE SITE RIGHT BRACHIAL; BG TOTAL HEMOGLOBIN 10.9 g/dL (12.0-18.0); BG VENT MODE NASAL CANNULA
[2020-03-04] MEDS: MIDODRINE HCL 2.5MG TABLET PO SCH ×2 (13:46→17:00)
[2020-03-04 14:00] LABS: PLATELET ESTIMATE NORMAL
[2020-03-04 15:51] LABS: T4 FREE 1.2 ng/dL (0.76-1.46)
[2020-03-04] MEDS: SODIUM BICARBONATE 100 MEQ in SODIUM CHLORIDE 0.45% 1,000 ML IV SCH (17:27)
[2020-03-04] MEDS: ATORVASTATIN CALCIUM 20MG TABLET PO SCH (22:29)
[2020-03-04] MEDS: FAMOTIDINE 20MG/2ML VIAL IV SCH (22:29)
[2020-03-04] MEDS: VANCOMYCIN 750 MG PREMIX 150 ML IV SCH (22:29)
[2020-03-05] MEDS: PIPERACILLIN/TAZOBACTAM 3.375 G in DEXT 5% WATER 100 ML IV SCH ×2 (04:03→06:00)
[2020-03-05] MEDS: ENOXAPARIN 30MG/0.3ML SYR SUBCUT SCH ×2 (04:04→21:28)
[2020-03-05] MEDS: SODIUM BICARBONATE 100 MEQ in SODIUM CHLORIDE 0.45% 1,000 ML IV SCH (04:52)
[2020-03-05 05:49] LABS: HEMATOCRIT. 33.7 % (36.0-48.0); HEMOGLOBIN. 11.1 g/dL (12.0-16.0); MEAN CORPUSCULAR HEMOGLOBIN 30.9 pg (28.0-32.0); MEAN CORPUSCULAR VOLUME 94.3 fL (81.0-99.0); MEAN PLATELET VOLUME 8.8 fl (7.4-10.4); PLATELET 161 x1000/uL (130-400); RED BLOOD CELL COUNT 3.58 mill/uL (4.2-5.4); RED CELL DISTRIBUTION WIDTH 14.5 % (11.6-14.6)
[2020-03-05] MEDS: BLOOD SUGAR DIAGNOSTIC STRIP TEST SCH ×4 (06:30→20:55)
[2020-03-05] MEDS: INSULIN LISPRO 100 UNITS/ML SUBCUT SCH ×4 (07:00→20:55)
[2020-03-05] MEDS: DOCUSATE SODIUM 100MG CAPSULE PO SCH ×2 (09:00→17:00)
[2020-03-05 11:09] LABS: PLATELET ESTIMATE NORMAL
[2020-03-05] MEDS ORDERED: MEROPENEM 1,000 MG in SODIUM CHLORIDE 0.9% 100 ML IV SCH (11:30)
[2020-03-05 11:39] VITALS: BP 122/60
[2020-03-05 11:55] VITALS: BP_SYST 170
[2020-03-05 12:00] VITALS: BP 122/60
[2020-03-05] MEDS: LACTOBACILLUS GG CAPSULE PO SCH (13:29)
[2020-03-05] MEDS: CLOPIDOGREL 75MG TABLET PO SCH (13:29)
[2020-03-05] MEDS: MULTIVITAMINS,THER W-MINERALS TABLET PO SCH (13:30)
[2020-03-05] MEDS: MIDODRINE HCL 2.5MG TABLET PO SCH ×3 (13:31→18:23)
[2020-03-05] MEDS: MEROPENEM 500MG in NORMAL SALINE 50ML IV SCH (13:32)
[2020-03-05 14:00] VITALS: BP 122/44
[2020-03-05] MEDS: METRONIDAZOLE 500 MG PREMIX 100 ML IV SCH ×2 (15:14→22:59)
[2020-03-05 16:00] VITALS: BP 79/44
[2020-03-05 20:06] LABS: CLARITY URINE TURBID (CLEAR); COLOR URINE DARK YELLOW (YELLOW); KETONES URINE 1+ (NEGATIVE); LEUKOCYTE ESTERASE URINE 2+ (NEGATIVE); NITRITE URINE NEGATIVE (NEGATIVE); OCCULT BLOOD URINE 3+ (NEGATIVE); PROTEIN URINE 3+ (NEGATIVE); SPECIFIC GRAVITY URINE 1.021 (1.005-1.030)
[2020-03-05] MEDS: FAMOTIDINE 20MG/2ML VIAL IV SCH (21:28)
[2020-03-05] MEDS: ATORVASTATIN CALCIUM 20MG TABLET PO SCH (21:29)
[2020-03-05] MEDS: VANCOMYCIN 750 MG PREMIX 150 ML IV SCH (21:29)
[2020-03-06 00:03] VITALS: BP 107/57
[2020-03-06] MEDS: MEROPENEM 500MG in NORMAL SALINE 50ML IV SCH ×2 (01:18→12:18)
[2020-03-06 04:00] VITALS: BP_SYST 127; BP_SYST 140; BP_DIAS 65
[2020-03-06] MEDS: METRONIDAZOLE 500 MG PREMIX 100 ML IV SCH ×3 (06:17→22:04)
[2020-03-06] MEDS: BLOOD SUGAR DIAGNOSTIC STRIP TEST SCH ×4 (06:34→21:00)
[2020-03-06] MEDS: INSULIN LISPRO 100 UNITS/ML SUBCUT SCH ×4 (07:10→21:00)
[2020-03-06 08:00] VITALS: BP 125/58
[2020-03-06] MEDS: CLOPIDOGREL 75MG TABLET PO SCH (08:21)
[2020-03-06] MEDS: MULTIVITAMINS,THER W-MINERALS TABLET PO SCH (08:21)
[2020-03-06] MEDS: LACTOBACILLUS GG CAPSULE PO SCH (08:21)
[2020-03-06] MEDS: MIDODRINE HCL 2.5MG TABLET PO SCH ×3 (08:21→17:22)
[2020-03-06] MEDS: DOCUSATE SODIUM 100MG CAPSULE PO SCH (08:21)
[2020-03-06] MEDS: SODIUM CHLORIDE 0.45% 1000ML IV SCH (09:16)
[2020-03-06] MEDS: SODIUM BICARBONATE 100 MEQ in SODIUM CHLORIDE 0.45% 1,000 ML IV SCH ×2 (11:46→22:32)
[2020-03-06 12:00] VITALS: BP 141/61
[2020-03-06] MEDS ORDERED: NA PHOS,M-B/NA PHOS,DI-BA ENEMA 118ML PR NR (12:30)
[2020-03-06 16:00] VITALS: BP 100/67
[2020-03-06] MEDS: DOCUSATE SODIUM SUGAR FREE 100MG/10ML UDC NG SCH (17:00)
[2020-03-06] MEDS ORDERED: FLUCONAZOLE/NS(NEO) 2MG/ML IVPB IV SCH (17:00)
[2020-03-06] MEDS ORDERED: FLUCONAZOLE 200 MG/100ML BAG 100 ML IV NR (18:30)
[2020-03-06 20:00] VITALS: BP 140/65
[2020-03-06] MEDS: ENOXAPARIN 30MG/0.3ML SYR SUBCUT SCH (22:00)
[2020-03-06] MEDS: ATORVASTATIN CALCIUM 20MG TABLET PO SCH (22:02)
[2020-03-06] MEDS: FAMOTIDINE 20MG/2ML VIAL IV SCH (22:03)
[2020-03-06] MEDS: VANCOMYCIN 750 MG PREMIX 150 ML IV SCH (22:33)
[2020-03-07] VITALS: BP 112/77
[2020-03-07] MEDS: MEROPENEM 500MG in NORMAL SALINE 50ML IV SCH ×2 (01:26→12:30)
[2020-03-07 04:00] VITALS: BP 100/53
[2020-03-07] MEDS: BLOOD SUGAR DIAGNOSTIC STRIP TEST SCH ×4 (07:28→21:00)
[2020-03-07] MEDS: METRONIDAZOLE 500 MG PREMIX 100 ML IV SCH ×3 (07:28→22:12)
[2020-03-07 08:00] VITALS: BP 108/64
[2020-03-07] MEDS: LACTOBACILLUS GG CAPSULE PO SCH (08:56)
[2020-03-07] MEDS: MULTIVITAMINS,THER W-MINERALS TABLET PO SCH (08:56)
[2020-03-07] MEDS: CLOPIDOGREL 75MG TABLET PO SCH (08:56)
[2020-03-07] MEDS: MIDODRINE HCL 2.5MG TABLET PO SCH ×3 (08:57→17:18)
[2020-03-07] MEDS: INSULIN LISPRO 100 UNITS/ML SUBCUT SCH ×4 (08:58→22:15)
[2020-03-07] MEDS: SODIUM BICARBONATE 100 MEQ in SODIUM CHLORIDE 0.45% 1,000 ML IV SCH (08:59)
[2020-03-07] MEDS: DOCUSATE SODIUM SUGAR FREE 100MG/10ML UDC NG SCH ×2 (08:59→17:00)
[2020-03-07] MEDS ORDERED: LIDOCAINE HCL 1% 20ML VIAL (Pyxis) INJ ONE (09:59)
[2020-03-07 12:00] VITALS: BP 110/60
[2020-03-07] MEDS: ALBUTEROL 6.7GM HFA INHALER ORI SCH ×4 (12:00→22:14)
[2020-03-07 13:22] LABS: BG BASE EXCESS -1.4 mmol/L (-2.0-2.0); BG CARBOXYHEMOGLOBIN 0.3 % (0.5-1.5); BG DEOXYHEMOGLOBIN 15.2 % (0.0-5.0); BG FRACTION INSPIRED OXYGEN 36; BG HCO3 ACT 21.9 mmol/L (22.0-26.0); BG METHEMOGLOBIN 0.3 % (0.0-1.5); BG OXYGEN SATURATION 84.7 % (92.0-98.5); BG OXYHEMOGLOBIN 84.2 % (94.0-97.0); BG PCO2 31.9 mmHg (35.0-45.0); BG PH 7.454 (7.350-7.450); BG PO2 48.3 mmHg (75.0-100.0); BG SAMPLE SITE RIGHT RADIAL; BG TOTAL HEMOGLOBIN 10.5 g/dL (12.0-18.0); BG VENT MODE NASAL CANNULA
[2020-03-07] MEDS: FLUCONAZOLE 100MG/50ML in BAG IV SCH (15:32)
[2020-03-07 16:00] VITALS: BP 99/60
[2020-03-07] MEDS ORDERED: FLUCONAZOLE/NS(NEO) 2MG/ML IVPB IV SCH (17:00)
[2020-03-07 20:00] VITALS: BP 127/58
[2020-03-07] MEDS: ENOXAPARIN 30MG/0.3ML SYR SUBCUT SCH (22:13)
[2020-03-07] MEDS: ATORVASTATIN CALCIUM 20MG TABLET PO SCH (22:14)
[2020-03-07] MEDS: FAMOTIDINE 20MG/2ML VIAL IV SCH (22:19)
[2020-03-08] VITALS: BP 90/41
[2020-03-08] MEDS: ALBUTEROL 6.7GM HFA INHALER ORI SCH ×6 (00:51→22:32)
[2020-03-08] MEDS: MEROPENEM 500MG in NORMAL SALINE 50ML IV SCH ×2 (00:51→12:24)
[2020-03-08 04:00] VITALS: BP 95/66
[2020-03-08] MEDS: METRONIDAZOLE 500 MG PREMIX 100 ML IV SCH ×3 (06:03→22:33)
[2020-03-08] MEDS: BLOOD SUGAR DIAGNOSTIC STRIP TEST SCH ×4 (06:03→21:00)
[2020-03-08 07:25] LABS: HEMATOCRIT. 27.5 % (36.0-48.0); HEMOGLOBIN. 9.3 g/dL (12.0-16.0); MEAN CORPUSCULAR HEMOGLOBIN 31.2 pg (28.0-32.0); MEAN CORPUSCULAR VOLUME 92.5 fL (81.0-99.0); MEAN PLATELET VOLUME 9.1 fl (7.4-10.4); PLATELET 134 x1000/uL (130-400); RED BLOOD CELL COUNT 2.97 mill/uL (4.2-5.4); RED CELL DISTRIBUTION WIDTH 14.9 % (11.6-14.6)
[2020-03-08 08:00] VITALS: BP 111/66
[2020-03-08] MEDS: DOCUSATE SODIUM SUGAR FREE 100MG/10ML UDC NG SCH ×2 (09:00→15:53)
[2020-03-08] MEDS: CLOPIDOGREL 75MG TABLET PO SCH (09:27)
[2020-03-08] MEDS: ZINC SULFATE 220 MG ( 50 ) CAPSULE NG SCH (09:27)
[2020-03-08] MEDS: LACTOBACILLUS GG CAPSULE PO SCH (09:27)
[2020-03-08] MEDS: MULTIVITAMINS,THER W-MINERALS TABLET PO SCH (09:27)
[2020-03-08] MEDS: ASCORBIC ACID 500 MG TABLET NG SCH (09:27)
[2020-03-08] MEDS: MIDODRINE HCL 2.5MG TABLET PO SCH ×3 (09:28→15:53)
[2020-03-08] MEDS: INSULIN LISPRO 100 UNITS/ML SUBCUT SCH ×4 (09:29→22:39)
[2020-03-08] MEDS: VANCOMYCIN 750 MG PREMIX 150 ML IV SCH (11:21)
[2020-03-08 12:00] VITALS: BP 118/68
[2020-03-08] MEDS: FLUCONAZOLE 100MG/50ML in BAG IV SCH (13:03)
[2020-03-08 15:40] VITALS: BP 119/70
[2020-03-08 20:00] VITALS: BP 135/64
[2020-03-08 22:00] LABS: PLATELET ESTIMATE NORMAL
[2020-03-08] MEDS: ATORVASTATIN CALCIUM 20MG TABLET PO SCH (22:33)
[2020-03-08] MEDS: ENOXAPARIN 40MG/0.4ML SYR SUBCUT SCH (22:33)
[2020-03-08] MEDS: FAMOTIDINE 20MG/2ML VIAL IV SCH (22:33)
[2020-03-09] VITALS (7 sets, daily range): BP systolic 101–168; BP diastolic 55–76
[2020-03-09] MEDS: ALBUTEROL 6.7GM HFA INHALER ORI SCH ×7 (00:05→23:34)
[2020-03-09] MEDS: MEROPENEM 500MG in NORMAL SALINE 50ML IV SCH ×2 (00:11→12:10)
[2020-03-09] MEDS: METRONIDAZOLE 500 MG PREMIX 100 ML IV SCH ×3 (06:15→21:10)
[2020-03-09] MEDS: BLOOD SUGAR DIAGNOSTIC STRIP TEST SCH ×4 (06:20→20:58)
[2020-03-09] MEDS: DOCUSATE SODIUM SUGAR FREE 100MG/10ML UDC NG SCH ×2 (09:00→16:37)
[2020-03-09] MEDS: LACTOBACILLUS GG CAPSULE PO SCH (09:10)
[2020-03-09] MEDS: ZINC SULFATE 220 MG ( 50 ) CAPSULE NG SCH (09:11)
[2020-03-09] MEDS: MIDODRINE HCL 2.5MG TABLET PO SCH ×3 (09:11→17:00)
[2020-03-09] MEDS: ASCORBIC ACID 500 MG TABLET NG SCH (09:11)
[2020-03-09] MEDS: CLOPIDOGREL 75MG TABLET PO SCH (09:11)
[2020-03-09] MEDS: MULTIVITAMINS,THER W-MINERALS TABLET PO SCH (09:11)
[2020-03-09] MEDS: INSULIN LISPRO 100 UNITS/ML SUBCUT SCH ×4 (09:12→21:10)
[2020-03-09] MEDS: FLUCONAZOLE 100MG/50ML in BAG IV SCH (14:05)
[2020-03-09] MEDS: ATORVASTATIN CALCIUM 20MG TABLET PO SCH (21:08)
[2020-03-09] MEDS: ENOXAPARIN 40MG/0.4ML SYR SUBCUT SCH (21:08)
[2020-03-09] MEDS: FAMOTIDINE 20MG/2ML VIAL IV SCH (21:09)
[2020-03-09] MEDS: VANCOMYCIN 750 MG PREMIX 150 ML IV SCH (23:32)
[2020-03-10 00:36] VITALS: BP 147/63
[2020-03-10] MEDS: MEROPENEM 500MG in NORMAL SALINE 50ML IV SCH (00:58)
[2020-03-10] MEDS: ALBUTEROL 6.7GM HFA INHALER ORI SCH ×6 (03:32→23:43)
[2020-03-10 04:00] VITALS: BP 114/65
[2020-03-10] MEDS: METRONIDAZOLE 500 MG PREMIX 100 ML IV SCH (06:13)
[2020-03-10] MEDS: BLOOD SUGAR DIAGNOSTIC STRIP TEST SCH ×4 (06:26→21:47)
[2020-03-10 08:00] VITALS: BP 124/83
[2020-03-10] MEDS: DOCUSATE SODIUM SUGAR FREE 100MG/10ML UDC NG SCH ×2 (09:00→16:06)
[2020-03-10] MEDS: MIDODRINE HCL 2.5MG TABLET PO SCH ×3 (09:00→16:37)
[2020-03-10] MEDS: CLOPIDOGREL 75MG TABLET PO SCH (09:04)
[2020-03-10] MEDS: MULTIVITAMINS,THER W-MINERALS TABLET PO SCH (09:04)
[2020-03-10] MEDS: ASCORBIC ACID 500 MG TABLET NG SCH (09:04)
[2020-03-10] MEDS: LACTOBACILLUS GG CAPSULE PO SCH (09:04)
[2020-03-10] MEDS: ZINC SULFATE 220 MG ( 50 ) CAPSULE NG SCH (09:04)
[2020-03-10] MEDS: INSULIN LISPRO 100 UNITS/ML SUBCUT SCH ×4 (09:06→21:48)
[2020-03-10 12:00] VITALS: BP 131/69
[2020-03-10] MEDS: FLUCONAZOLE 100MG/50ML in BAG IV SCH (14:08)
[2020-03-10 16:00] VITALS: BP 121/72
[2020-03-10 20:00] VITALS: BP 104/80
[2020-03-10] MEDS: ENOXAPARIN 40MG/0.4ML SYR SUBCUT SCH (21:47)
[2020-03-10] MEDS: ATORVASTATIN CALCIUM 20MG TABLET PO SCH (21:48)
[2020-03-10] MEDS: FAMOTIDINE 20MG/2ML VIAL IV SCH (21:48)
[2020-03-11] VITALS: BP 116/84
[2020-03-11] MEDS: ALBUTEROL 6.7GM HFA INHALER ORI SCH ×5 (03:50→20:42)
[2020-03-11 04:00] VITALS: BP 110/70
[2020-03-11] MEDS: BLOOD SUGAR DIAGNOSTIC STRIP TEST SCH ×4 (06:21→20:41)
[2020-03-11] MEDS: INSULIN LISPRO 100 UNITS/ML SUBCUT SCH ×4 (07:10→20:44)
[2020-03-11 07:56] LABS: HEMOGLOBIN. 9.7 g/dL (12.0-16.0); MEAN CORPUSCULAR HEMOGLOBIN 31.1 pg (28.0-32.0); MEAN CORPUSCULAR VOLUME 92.9 fL (81.0-99.0); MEAN PLATELET VOLUME 9.5 fl (7.4-10.4); PLATELET 86 x1000/uL (130-400); RED BLOOD CELL COUNT 3.13 mill/uL (4.2-5.4); RED CELL DISTRIBUTION WIDTH 14.9 % (11.6-14.6)
[2020-03-11 08:00] VITALS: BP 133/79
[2020-03-11] MEDS: DOCUSATE SODIUM SUGAR FREE 100MG/10ML UDC NG SCH ×2 (09:00→16:21)
[2020-03-11] MEDS ORDERED: DEXT 5%/0.45% NACL 500ML 500 ML IV ONE (09:15)
[2020-03-11] MEDS: LACTOBACILLUS GG CAPSULE PO SCH (09:48)
[2020-03-11] MEDS: ZINC SULFATE 220 MG ( 50 ) CAPSULE NG SCH (09:49)
[2020-03-11] MEDS: ASCORBIC ACID 500 MG TABLET NG SCH (09:49)
[2020-03-11] MEDS: MIDODRINE HCL 2.5MG TABLET PO SCH ×2 (09:50→16:32)
[2020-03-11] MEDS: CLOPIDOGREL 75MG TABLET PO SCH (09:51)
[2020-03-11] MEDS: MULTIVITAMINS,THER W-MINERALS TABLET PO SCH (09:51)
[2020-03-11] MEDS: ERGOCALCIFEROL 50000UNITS CAPSULE PO SCH (09:53)
[2020-03-11 11:19] LABS: CREATINE KINASE 190 IU/L (26-192)
[2020-03-11 12:00] VITALS: BP 115/62
[2020-03-11 16:17] LABS: PLATELET ESTIMATE DECREASED
[2020-03-11 20:00] VITALS: BP 114/75
[2020-03-11] MEDS: FAMOTIDINE 20MG/2ML VIAL IV SCH (20:42)
[2020-03-11] MEDS: ATORVASTATIN CALCIUM 20MG TABLET PO SCH (20:42)
[2020-03-12] VITALS: BP 122/98
[2020-03-12] MEDS: ALBUTEROL 6.7GM HFA INHALER ORI SCH ×4 (01:57→20:39)
[2020-03-12 04:00] VITALS: BP 139/67
[2020-03-12] MEDS: BLOOD SUGAR DIAGNOSTIC STRIP TEST SCH ×4 (06:15→20:39)
[2020-03-12 08:00] VITALS: BP 122/81
[2020-03-12] MEDS: DOCUSATE SODIUM SUGAR FREE 100MG/10ML UDC NG SCH ×2 (11:40→18:04)
[2020-03-12] MEDS: MIDODRINE HCL 2.5MG TABLET PO SCH ×2 (11:40→17:00)
[2020-03-12] MEDS: ASCORBIC ACID 500 MG TABLET NG SCH (11:40)
[2020-03-12] MEDS: MULTIVITAMINS,THER W-MINERALS TABLET PO SCH (11:41)
[2020-03-12] MEDS: ZINC SULFATE 220 MG ( 50 ) CAPSULE NG SCH (11:41)
[2020-03-12] MEDS: LACTOBACILLUS GG CAPSULE PO SCH (11:41)
[2020-03-12] MEDS: CLOPIDOGREL 75MG TABLET PO SCH (11:41)
[2020-03-12] MEDS: INSULIN LISPRO 100 UNITS/ML SUBCUT SCH ×4 (11:48→21:00)
[2020-03-12 12:00] VITALS: BP 110/59
[2020-03-12 16:00] VITALS: BP 119/67
[2020-03-12 20:00] VITALS: BP 119/75
[2020-03-12] MEDS: FAMOTIDINE 20MG/2ML VIAL IV SCH (20:38)
[2020-03-12] MEDS: ATORVASTATIN CALCIUM 20MG TABLET PO SCH (20:38)
[2020-03-12 21:19] LABS: CHLORIDE 112 mEq/L (98-107)
[2020-03-12 21:26] LABS: LDL CHOLESTEROL 25 mg/dL (5-100)
[2020-03-12 21:27] LABS: HDL CHOLESTEROL 11 mg/dL (40-59)
[2020-03-12 21:28] LABS: CREATINE KINASE 93 IU/L (26-192)
[2020-03-13] VITALS: BP 122/72
[2020-03-13 04:00] VITALS: BP 116/75
[2020-03-13] MEDS: BLOOD SUGAR DIAGNOSTIC STRIP TEST SCH ×4 (07:11→21:17)
[2020-03-13 07:56] LABS: HEPATITIS B SURFACE ANTIGEN NEGATIVE
[2020-03-13 08:00] VITALS: BP 137/61
[2020-03-13] MEDS ORDERED: MENTHOL/LANOLIN/CALAMINE/ZN OX OINT 71GM TOP PRN (09:30)
[2020-03-13] MEDS: LACTOBACILLUS GG CAPSULE PO SCH (09:44)
[2020-03-13] MEDS: DOCUSATE SODIUM SUGAR FREE 100MG/10ML UDC NG SCH ×2 (09:44→16:22)
[2020-03-13] MEDS: ZINC SULFATE 220 MG ( 50 ) CAPSULE NG SCH (09:44)
[2020-03-13] MEDS: CLOPIDOGREL 75MG TABLET PO SCH (09:44)
[2020-03-13] MEDS: ASCORBIC ACID 500 MG TABLET NG SCH (09:44)
[2020-03-13] MEDS: MULTIVITAMINS,THER W-MINERALS TABLET PO SCH (09:44)
[2020-03-13] MEDS: MIDODRINE HCL 2.5MG TABLET PO SCH ×4 (09:45→16:22)
[2020-03-13] MEDS: INSULIN LISPRO 100 UNITS/ML SUBCUT SCH ×4 (09:53→21:18)
[2020-03-13] MEDS: ALBUTEROL 6.7GM HFA INHALER ORI SCH ×5 (09:54→20:00)
[2020-03-13] MEDS: INSULIN GLARGINE UD 100 UNITS/ML SYR SUBCUT SCH ×2 (11:00→17:06)
[2020-03-13] MEDS: SODIUM CHL 0.45% + KCL 20MEQ/L 1,000 ML IV SCH (11:24)
[2020-03-13 12:00] VITALS: BP 109/68
[2020-03-13 16:00] VITALS: BP 117/87
[2020-03-13 20:00] VITALS: BP 133/76
[2020-03-13] MEDS: ATORVASTATIN CALCIUM 20MG TABLET PO SCH (21:16)
[2020-03-13] MEDS: FAMOTIDINE 20MG/2ML VIAL IV SCH (21:17)
[2020-03-14] VITALS (7 sets, daily range): BP systolic 97–170; BP diastolic 54–90
[2020-03-14] MEDS: ALBUTEROL 6.7GM HFA INHALER ORI SCH ×6 (01:51→20:48)
[2020-03-14] MEDS: SODIUM CHL 0.45% + KCL 20MEQ/L 1,000 ML IV SCH ×2 (01:52→18:20)
[2020-03-14] MEDS: BLOOD SUGAR DIAGNOSTIC STRIP TEST SCH ×4 (06:49→20:51)
[2020-03-14] MEDS: INSULIN LISPRO 100 UNITS/ML SUBCUT SCH ×4 (06:50→20:50)
[2020-03-14 07:31] LABS: BASOPHILS % 0.4 % (0.0-2.0); EOSINOPHILS % 0.8 % (0.0-5.0); HEMATOCRIT. 26.1 % (36.0-48.0); HEMOGLOBIN. 8.8 g/dL (12.0-16.0); LYMPHOCYTES % 7.1 % (20.0-50.0); MEAN CORPUSCULAR HEMOGLOBIN 31.3 pg (28.0-32.0); MEAN CORPUSCULAR VOLUME 93.3 fL (81.0-99.0); MEAN PLATELET VOLUME 9.2 fl (7.4-10.4); MONOCYTES % 5.2 % (2.0-8.0); NEUTROPHILS % 86.5 % (40.0-76.0); PLATELET 88 x1000/uL (130-400); RED CELL DISTRIBUTION WIDTH 15.1 % (11.6-14.6)
[2020-03-14] MEDS: MULTIVITAMINS,THER W-MINERALS TABLET PO SCH (09:43)
[2020-03-14] MEDS: DOCUSATE SODIUM SUGAR FREE 100MG/10ML UDC NG SCH ×2 (09:43→17:00)
[2020-03-14] MEDS: ZINC SULFATE 220 MG ( 50 ) CAPSULE NG SCH (09:44)
[2020-03-14] MEDS: LACTOBACILLUS GG CAPSULE PO SCH (09:44)
[2020-03-14] MEDS: MIDODRINE HCL 2.5MG TABLET PO SCH ×3 (09:44→17:00)
[2020-03-14] MEDS: ASCORBIC ACID 500 MG TABLET NG SCH (09:44)
[2020-03-14] MEDS: CLOPIDOGREL 75MG TABLET PO SCH (09:44)
[2020-03-14] MEDS: INSULIN GLARGINE UD 100 UNITS/ML SYR SUBCUT SCH (09:56)
[2020-03-14 12:31] LABS: TOTAL IRON BINDING CAPACITY 123 ug/dL (250-450)
[2020-03-14] MEDS: FAMOTIDINE 20MG/2ML VIAL IV SCH (20:49)
[2020-03-14] MEDS: ATORVASTATIN CALCIUM 20MG TABLET PO SCH (20:51)
[2020-03-15] VITALS: BP 166/43
[2020-03-15] MEDS: ALBUTEROL 6.7GM HFA INHALER ORI SCH ×6 (00:15→22:25)
[2020-03-15] MEDS: SODIUM CHL 0.45% + KCL 20MEQ/L 1,000 ML IV SCH (03:00)
[2020-03-15 04:00] VITALS: BP 121/64
[2020-03-15] MEDS: BLOOD SUGAR DIAGNOSTIC STRIP TEST SCH ×4 (06:10→21:00)
[2020-03-15] MEDS: INSULIN LISPRO 100 UNITS/ML SUBCUT SCH ×3 (06:11→17:43)
[2020-03-15 06:20] LABS: HEMATOCRIT. 25.6 % (36.0-48.0); HEMOGLOBIN. 8.5 g/dL (12.0-16.0); MEAN CORPUSCULAR HEMOGLOBIN 31.3 pg (28.0-32.0); MEAN CORPUSCULAR VOLUME 93.8 fL (81.0-99.0); MEAN PLATELET VOLUME 9.1 fl (7.4-10.4); PLATELET 77 x1000/uL (130-400); RED BLOOD CELL COUNT 2.73 mill/uL (4.2-5.4); RED CELL DISTRIBUTION WIDTH 14.9 % (11.6-14.6)
[2020-03-15 08:00] VITALS: BP 125/64
[2020-03-15] MEDS: DOCUSATE SODIUM SUGAR FREE 100MG/10ML UDC NG SCH ×2 (09:00→16:26)
[2020-03-15] MEDS: ZINC SULFATE 220 MG ( 50 ) CAPSULE NG SCH (09:13)
[2020-03-15] MEDS: LACTOBACILLUS GG CAPSULE PO SCH (09:13)
[2020-03-15] MEDS: ASPIRIN 81MG EC TABLET PO SCH (09:14)
[2020-03-15] MEDS: MULTIVITAMINS,THER W-MINERALS TABLET PO SCH (09:15)
[2020-03-15] MEDS: MIDODRINE HCL 2.5MG TABLET PO SCH ×3 (09:15→17:43)
[2020-03-15] MEDS: ASCORBIC ACID 500 MG TABLET NG SCH (09:15)
[2020-03-15] MEDS ORDERED: FERROUS SULFATE 300MG/5ML UDC PO SCH (10:00)
[2020-03-15] MEDS: INSULIN GLARGINE UD 100 UNITS/ML SYR SUBCUT SCH (10:50)
[2020-03-15 12:00] VITALS: BP 152/78
[2020-03-15] MEDS: FERROUS SULFATE 300MG/5ML UDC PO SCH ×2 (12:30→17:42)
[2020-03-15 12:56] LABS: HEMATOCRIT 26.6 % (36.0-48.0); HEMOGLOBIN 8.7 g/dL (12.0-16.0)
[2020-03-15 16:00] VITALS: BP 127/63
[2020-03-15 18:11] LABS: PLATELET ESTIMATE DECREASED
[2020-03-15 20:00] VITALS: BP 126/74
[2020-03-15] MEDS: FAMOTIDINE 20MG/2ML VIAL IV SCH (22:24)
[2020-03-15] MEDS: ATORVASTATIN CALCIUM 20MG TABLET PO SCH (22:24)
[2020-03-16 00:41] VITALS: BP 123/70
[2020-03-16] MEDS: ALBUTEROL 6.7GM HFA INHALER ORI SCH ×6 (01:21→20:57)
[2020-03-16] MEDS: INSULIN LISPRO 100 UNITS/ML SUBCUT SCH ×5 (01:24→21:00)
[2020-03-16 04:00] VITALS: BP 131/78
[2020-03-16 05:08] LABS: ANTI-NUCLEAR ANTIBODIES DIRECT Negative (Negative)
[2020-03-16 06:53] LABS: CHLORIDE 111 mEq/L (98-107)
[2020-03-16] MEDS: BLOOD SUGAR DIAGNOSTIC STRIP TEST SCH ×4 (06:53→20:56)
[2020-03-16 07:09] LABS: HEMATOCRIT. 26.9 % (36.0-48.0); HEMOGLOBIN. 8.9 g/dL (12.0-16.0); MEAN CORPUSCULAR VOLUME 93.5 fL (81.0-99.0); MEAN PLATELET VOLUME 9.5 fl (7.4-10.4); PLATELET 106 x1000/uL (130-400); RED BLOOD CELL COUNT 2.88 mill/uL (4.2-5.4); RED CELL DISTRIBUTION WIDTH 15.1 % (11.6-14.6)
[2020-03-16 08:00] VITALS: BP 110/85
[2020-03-16] MEDS: DOCUSATE SODIUM SUGAR FREE 100MG/10ML UDC NG SCH ×2 (08:01→16:32)
[2020-03-16] MEDS: LACTOBACILLUS GG CAPSULE PO SCH (09:04)
[2020-03-16] MEDS: ZINC SULFATE 220 MG ( 50 ) CAPSULE NG SCH (09:04)
[2020-03-16] MEDS: MULTIVITAMINS,THER W-MINERALS TABLET PO SCH (09:05)
[2020-03-16] MEDS: FERROUS SULFATE 300MG/5ML UDC PO SCH ×4 (09:05→17:15)
[2020-03-16] MEDS: ASCORBIC ACID 500 MG TABLET NG SCH (09:05)
[2020-03-16] MEDS: ASPIRIN 81MG EC TABLET PO SCH (09:05)
[2020-03-16] MEDS: MIDODRINE HCL 2.5MG TABLET PO SCH ×3 (09:05→17:00)
[2020-03-16] MEDS ORDERED: ASPI-1158 PO (09:47)
[2020-03-16] MEDS ORDERED: LACT1CAP77 PO (09:47)
[2020-03-16] MEDS ORDERED: ALBU6.7H9 ORI (09:47)
[2020-03-16] MEDS ORDERED: ZINC220C2 NG (09:47)
[2020-03-16] MEDS ORDERED: ATOR20TA PO (09:47)
[2020-03-16] MEDS ORDERED: DEXTL PO (09:47)
[2020-03-16] MEDS ORDERED: ASCO500T20 NG (09:47)
[2020-03-16] MEDS ORDERED: MIDO2.5T PO (09:47)
[2020-03-16] MEDS ORDERED: FE300LUD PO (09:47)
[2020-03-16] MEDS ORDERED: LANTUSUD SUBCUT (09:47)
[2020-03-16] MEDS: INSULIN GLARGINE UD 100 UNITS/ML SYR SUBCUT SCH (10:42)
[2020-03-16 12:00] VITALS: BP 95/70
[2020-03-16 14:25] LABS: BG CARBOXYHEMOGLOBIN 0.3 % (0.5-1.5); BG DEOXYHEMOGLOBIN 8.3 % (0.0-5.0); BG FRACTION INSPIRED OXYGEN 36; BG HCO3 ACT 21.4 mmol/L (22.0-26.0); BG METHEMOGLOBIN 0.3 % (0.0-1.5); BG OXYGEN SATURATION 91.6 % (92.0-98.5); BG OXYHEMOGLOBIN 91.1 % (94.0-97.0); BG PH 7.456 (7.350-7.450); BG PO2 62.8 mmHg (75.0-100.0); BG SAMPLE SITE RIGHT RADIAL; BG TOTAL HEMOGLOBIN 9.4 g/dL (12.0-18.0); BG VENT MODE NASAL CANNULA
[2020-03-16 14:43] LABS: PLATELET ESTIMATE DECREASED
[2020-03-16 20:00] VITALS: BP 142/70
[2020-03-16] MEDS: FAMOTIDINE 20MG/2ML VIAL IV SCH (20:56)
[2020-03-16] MEDS: ATORVASTATIN CALCIUM 20MG TABLET PO SCH (20:56)
[2020-03-17] VITALS: BP 122/47
[2020-03-17] MEDS: ALBUTEROL 6.7GM HFA INHALER ORI SCH ×7 (00:34→20:33)
[2020-03-17 04:00] VITALS: BP 109/62
[2020-03-17] MEDS: BLOOD SUGAR DIAGNOSTIC STRIP TEST SCH ×4 (07:00→20:33)
[2020-03-17] MEDS: INSULIN LISPRO 100 UNITS/ML SUBCUT SCH ×4 (07:50→20:44)
[2020-03-17 08:00] VITALS: BP 116/65
[2020-03-17] MEDS: DOCUSATE SODIUM SUGAR FREE 100MG/10ML UDC NG SCH ×2 (09:00→17:00)
[2020-03-17] MEDS: ZINC SULFATE 220 MG ( 50 ) CAPSULE NG SCH (09:29)
[2020-03-17] MEDS: ASPIRIN 81MG EC TABLET PO SCH (09:29)
[2020-03-17] MEDS: ASCORBIC ACID 500 MG TABLET NG SCH (09:29)
[2020-03-17] MEDS: MULTIVITAMINS,THER W-MINERALS TABLET PO SCH (09:29)
[2020-03-17] MEDS: MIDODRINE HCL 2.5MG TABLET PO SCH ×3 (09:29→17:00)
[2020-03-17] MEDS: LACTOBACILLUS GG CAPSULE PO SCH (09:30)
[2020-03-17] MEDS: FERROUS SULFATE 300MG/5ML UDC PO SCH ×3 (09:30→17:23)
[2020-03-17] MEDS: INSULIN GLARGINE UD 100 UNITS/ML SYR SUBCUT SCH (09:51)
[2020-03-17 12:00] VITALS: BP 113/49
[2020-03-17 16:05] VITALS: BP 112/50
[2020-03-17 20:10] VITALS: BP 129/69
[2020-03-17] MEDS: ATORVASTATIN CALCIUM 20MG TABLET PO SCH (20:33)
[2020-03-17] MEDS: FAMOTIDINE 20MG/2ML VIAL IV SCH (20:33)
[2020-03-18] VITALS (7 sets, daily range): BP systolic 94–147; BP diastolic 41–90
[2020-03-18] MEDS: ALBUTEROL 6.7GM HFA INHALER ORI SCH ×6 (00:30→20:00)
[2020-03-18] MEDS: INSULIN LISPRO 100 UNITS/ML SUBCUT SCH ×4 (06:32→21:00)
[2020-03-18] MEDS: BLOOD SUGAR DIAGNOSTIC STRIP TEST SCH ×4 (06:32→21:00)
[2020-03-18] MEDS: DOCUSATE SODIUM SUGAR FREE 100MG/10ML UDC NG SCH ×2 (09:56→17:20)
[2020-03-18] MEDS: FERROUS SULFATE 300MG/5ML UDC PO SCH ×3 (09:57→17:20)
[2020-03-18] MEDS: ASCORBIC ACID 500 MG TABLET NG SCH (09:57)
[2020-03-18] MEDS: LACTOBACILLUS GG CAPSULE PO SCH (09:57)
[2020-03-18] MEDS: ASPIRIN 81MG EC TABLET PO SCH (09:57)
[2020-03-18] MEDS: MULTIVITAMINS,THER W-MINERALS TABLET PO SCH (09:57)
[2020-03-18] MEDS: MIDODRINE HCL 2.5MG TABLET PO SCH ×3 (09:57→17:20)
[2020-03-18] MEDS: ERGOCALCIFEROL 50000UNITS CAPSULE PO SCH (09:57)
[2020-03-18] MEDS: ZINC SULFATE 220 MG ( 50 ) CAPSULE NG SCH (09:57)
[2020-03-18 11:34] LABS: BASOPHILS % 0.9 % (0.0-2.0); EOSINOPHILS % 0.5 % (0.0-5.0); HEMATOCRIT. 24.7 % (36.0-48.0); HEMOGLOBIN. 8.1 g/dL (12.0-16.0); LYMPHOCYTES % 9.3 % (20.0-50.0); MEAN CORPUSCULAR HEMOGLOBIN 30.4 pg (28.0-32.0); MEAN CORPUSCULAR VOLUME 92.7 fL (81.0-99.0); MEAN PLATELET VOLUME 9.4 fl (7.4-10.4); NEUTROPHILS % 82.3 % (40.0-76.0); PLATELET 157 x1000/uL (130-400); RED BLOOD CELL COUNT 2.67 mill/uL (4.2-5.4); RED CELL DISTRIBUTION WIDTH 14.7 % (11.6-14.6)
[2020-03-18] MEDS: ATORVASTATIN CALCIUM 20MG TABLET PO SCH (22:56)
[2020-03-18] MEDS: FAMOTIDINE 20MG/2ML VIAL IV SCH (22:57)
[2020-03-19] MEDS: ALBUTEROL 6.7GM HFA INHALER ORI SCH ×6 (04:00→21:32)
[2020-03-19] MEDS: INSULIN LISPRO 100 UNITS/ML SUBCUT SCH ×4 (07:50→21:00)
[2020-03-19] MEDS: FERROUS SULFATE 300MG/5ML UDC PO SCH ×4 (07:50→17:50)
[2020-03-19 08:00] VITALS: BP 121/71
[2020-03-19] MEDS: BLOOD SUGAR DIAGNOSTIC STRIP TEST SCH ×4 (08:07→21:22)
[2020-03-19] MEDS: MIDODRINE HCL 2.5MG TABLET PO SCH ×4 (09:00→16:07)
[2020-03-19] MEDS: ZINC SULFATE 220 MG ( 50 ) CAPSULE NG SCH (09:00)
[2020-03-19] MEDS: ASCORBIC ACID 500 MG TABLET NG SCH (09:00)
[2020-03-19] MEDS: DOCUSATE SODIUM SUGAR FREE 100MG/10ML UDC NG SCH ×2 (09:00→16:07)
[2020-03-19] MEDS: ENOXAPARIN 30MG/0.3ML SYR SUBCUT SCH (09:00)
[2020-03-19] MEDS: MULTIVITAMINS,THER W-MINERALS TABLET PO SCH (09:00)
[2020-03-19] MEDS: ASPIRIN 81MG EC TABLET PO SCH (09:00)
[2020-03-19] MEDS: LACTOBACILLUS GG CAPSULE PO SCH (09:00)
[2020-03-19] MEDS: SODIUM POLYSTYRENE SULFONATE 15 G/60 ML BOT PO NR ×2 (12:02→12:14)
[2020-03-19 20:00] VITALS: BP 133/90
[2020-03-19] MEDS: ATORVASTATIN CALCIUM 20MG TABLET PO SCH (21:32)
[2020-03-19] MEDS: FAMOTIDINE 20MG/2ML VIAL IV SCH (21:32)
[2020-03-20] MEDS: BLOOD SUGAR DIAGNOSTIC STRIP TEST SCH ×4 (06:38→21:00)
[2020-03-20] MEDS: ALBUTEROL 6.7GM HFA INHALER ORI SCH ×5 (06:38→17:32)
[2020-03-20] MEDS: INSULIN LISPRO 100 UNITS/ML SUBCUT SCH ×4 (07:50→21:00)
[2020-03-20 08:10] VITALS: BP 117/95
[2020-03-20] MEDS: FERROUS SULFATE 300MG/5ML UDC PO SCH ×3 (08:45→17:31)
[2020-03-20] MEDS: LACTOBACILLUS GG CAPSULE PO SCH (08:45)
[2020-03-20] MEDS: DOCUSATE SODIUM SUGAR FREE 100MG/10ML UDC NG SCH ×2 (08:45→17:31)
[2020-03-20] MEDS: ASCORBIC ACID 500 MG TABLET NG SCH (08:46)
[2020-03-20] MEDS: ZINC SULFATE 220 MG ( 50 ) CAPSULE NG SCH (08:46)
[2020-03-20] MEDS: ASPIRIN 81MG EC TABLET PO SCH (08:46)
[2020-03-20] MEDS: MIDODRINE HCL 2.5MG TABLET PO SCH ×3 (08:57→17:31)
[2020-03-20] MEDS: ENOXAPARIN 30MG/0.3ML SYR SUBCUT SCH (08:57)
[2020-03-20 09:11] LABS: BASOPHILS % 0.5 % (0.0-2.0); EOSINOPHILS % 0.6 % (0.0-5.0); HEMATOCRIT. 29.9 % (36.0-48.0); HEMOGLOBIN. 9.7 g/dL (12.0-16.0); LYMPHOCYTES % 7.9 % (20.0-50.0); MEAN CORPUSCULAR HEMOGLOBIN 29.4 pg (28.0-32.0); MEAN CORPUSCULAR VOLUME 90.9 fL (81.0-99.0); MEAN PLATELET VOLUME 8.3 fl (7.4-10.4); MONOCYTES % 7.4 % (2.0-8.0); NEUTROPHILS % 83.6 % (40.0-76.0); PLATELET 144 x1000/uL (130-400); RED BLOOD CELL COUNT 3.29 mill/uL (4.2-5.4); RED CELL DISTRIBUTION WIDTH 15.6 % (11.6-14.6)
[2020-03-20] MEDS ORDERED: SODIUM POLYSTYRENE SULFONATE 15 G/60 ML BOT PO NR (16:30)
[2020-03-20 20:41] VITALS: BP 116/67
[2020-03-20] MEDS: FAMOTIDINE 20MG/2ML VIAL IV SCH (22:27)
[2020-03-20] MEDS: ATORVASTATIN CALCIUM 20MG TABLET PO SCH (22:27)
[2020-03-21 06:00] VITALS: BP 118/68
[2020-03-21 07:07] LABS: BASOPHILS % 0.5 % (0.0-2.0); EOSINOPHILS % 0.4 % (0.0-5.0); HEMOGLOBIN. 9.9 g/dL (12.0-16.0); LYMPHOCYTES % 10.8 % (20.0-50.0); MEAN CORPUSCULAR HEMOGLOBIN 29.5 pg (28.0-32.0); MEAN CORPUSCULAR VOLUME 92.5 fL (81.0-99.0); MEAN PLATELET VOLUME 8.9 fl (7.4-10.4); MONOCYTES % 8.3 % (2.0-8.0); PLATELET 162 x1000/uL (130-400); RED BLOOD CELL COUNT 3.35 mill/uL (4.2-5.4); RED CELL DISTRIBUTION WIDTH 16.1 % (11.6-14.6)
[2020-03-21] MEDS: INSULIN LISPRO 100 UNITS/ML SUBCUT SCH ×2 (07:50→12:50)
[2020-03-21 08:00] VITALS: BP 110/58
[2020-03-21 08:23] VITALS: BP 110/58
[2020-03-21] MEDS: DOCUSATE SODIUM SUGAR FREE 100MG/10ML UDC NG SCH (09:49)
[2020-03-21] MEDS: ASPIRIN 81MG EC TABLET PO SCH (09:50)
[2020-03-21] MEDS: ENOXAPARIN 30MG/0.3ML SYR SUBCUT SCH (09:50)
[2020-03-21] MEDS: FERROUS SULFATE 300MG/5ML UDC PO SCH ×2 (09:50→14:44)
[2020-03-21] MEDS: ASCORBIC ACID 500 MG TABLET NG SCH (09:50)
[2020-03-21] MEDS: LACTOBACILLUS GG CAPSULE PO SCH (09:50)
[2020-03-21] MEDS: ZINC SULFATE 220 MG ( 50 ) CAPSULE NG SCH (09:50)
[2020-03-21] MEDS: MIDODRINE HCL 2.5MG TABLET PO SCH ×2 (09:51→14:44)
[2020-03-21] MEDS: BLOOD SUGAR DIAGNOSTIC STRIP TEST SCH (12:40)
[2020-03-21] MEDS ORDERED: DEXT 5%/0.45% NACL 500ML 500 ML IV ONE (13:45)
== END 2020-03-21 15:20 | disposition home or self-care (01) | DRG 871 ==
LOC: ER 14:12 → UNDOADMIN 20:03 → MICUSO 20:03 → 7EST 03-05 10:21 → MICUSO 03-05 10:21 → ER 03-05 12:00 → 7EST 03-05 12:00 → ER 03-05 13:50 → MICUSO 03-05 13:56 → 7EST 03-05 14:46 → 6WST 03-13 19:30
PROVIDERS: ADMIT Internal Medicine Geriatric Medicine; ATTEND Internal Medicine Geriatric Medicine
PROC: 05HY33Z Insertion of Infusion Device into Upper Vein, Percutaneous Approach (ICD-10-PCS; principal; 2020-03-07)
PROC: B54MZZA Ultrasonography of Right Upper Extremity Veins, Guidance (ICD-10-PCS; 2020-03-07)
PROC: 5A09357 Assistance with Respiratory Ventilation, Less than 24 Consecutive Hours, Continuous Positive Airway Pressure (ICD-10-PCS; 2020-03-12)
PROC: 30233N1 Transfusion of Nonautologous Red Blood Cells into Peripheral Vein, Percutaneous Approach (ICD-10-PCS; 2020-03-19)
DX: A41.89 Other specified sepsis (principal); U07.1 COVID-19; G92 Toxic encephalopathy; J96.01 Acute respiratory failure with hypoxia; N17.0 Acute kidney failure with tubular necrosis; J12.82 Pneumonia due to coronavirus disease 2019; I21.4 Non-ST elevation (NSTEMI) myocardial infarction; E87.2 Acidosis; I24.8 Other forms of acute ischemic heart disease; J44.0 Chronic obstructive pulmonary disease with (acute) lower respiratory infection; I69.354 Hemiplegia and hemiparesis following cerebral infarction affecting left non-dominant side; B37.49 Other urogenital candidiasis; R47.01 Aphasia; E44.0 Moderate protein-calorie malnutrition; D64.9 Anemia, unspecified; E11.22 Type 2 diabetes mellitus with diabetic chronic kidney disease; B97.89 Other viral agents as the cause of diseases classified elsewhere; I12.9 Hypertensive chronic kidney disease with stage 1 through stage 4 chronic kidney disease, or unspecified chronic kidney disease; I25.10 Atherosclerotic heart disease of native coronary artery without angina pectoris; K56.41 Fecal impaction; E11.51 Type 2 diabetes mellitus with diabetic peripheral angiopathy without gangrene; E87.5 Hyperkalemia; E11.42 Type 2 diabetes mellitus with diabetic polyneuropathy; L30.4 Erythema intertrigo; M81.0 Age-related osteoporosis without current pathological fracture; N18.1 Chronic kidney disease, stage 1; Z89.511 Acquired absence of right leg below knee; Z79.02 Long term (current) use of antithrombotics/antiplatelets; Z74.01 Bed confinement status; Z79.82 Long term (current) use of aspirin; Z79.899 Other long term (current) drug therapy; Z95.5 Presence of coronary angioplasty implant and graft; Z90.49 Acquired absence of other specified parts of digestive tract; D50.9 Iron deficiency anemia, unspecified; R19.7 Diarrhea, unspecified
CPT/HCPCS: 36415; 36600; 71045; 74176; 76937; 80048; 80053; 80061; 80202; 81003; 82306; 82375; 82550; 82553; 82805; 82962; 83036; 83540; 83550; 83735; 84439; 84443; 84484; 85014; 85018; 85025; 86038; 86160; 86803; 86850; 86900; 86920; 87015; 87045; 87106; 87340; 87426; 87427; 87449; 87493; 93005; 96365; 96375; 99285; C1725; J1450; J1650; J1815; J2185; J2543; J3370; J3480; J3490; J7030; J7060; P9016; U0003; A4315